=== PATIENT | female | born 1955 | race Caucasian/White ===

== ENCOUNTER 2019-03-09 17:15 | Emergency (ER) | payer MEDICARE, BC ==
[~2019-03-09] VITALS: Ht 152.4 cm; Wt 66.0 kg
--- NOTE | 2019-03-09 17:44 | ED General ---
General Chief Complaint: Cough/Cold/Flu Symptoms Stated Complaint: COUGH,FEVER,FALL-HIT HEAD History of Present Illness Date Seen by Provider: Mar 09, 2019 Time Seen by Provider: 17:39 Initial Comments Patient is a 63-year-old female with past medical history significant for fibromyalgia who comes to the ER today complaining of flu like symptoms. Her has been ill in the house as well. She has had symptoms that started yesterday and worsened today. She complains of some upper airway congestion, p ersistent nonproductive cough, general myalgias, and malaise. Patient states she did fall on her bathtub last night striking the right side of her head on the water spigot. She did not lose consciousness. No blurred vision, nausea or vomiting today or since the accident. She does not complain of cervical neck tenderness. Allergies and Home Medications Allergies Coded Allergies: Penicillins (Verified Allergy, Unknown, 03/09/19) escitalopram (Verified Allergy, Unknown, 03/09/19) morphine (Verified Allergy, Unknown, 03/09/19) Home Medications Benzonatate 100 Mg Capsule, 200 MG PO TID PRN for cough Prescribed by: KLARISSA DAWSON on 03/09/191837 Prednisone 50 Mg Tab, 50 MG PO DAILY Prescribed by: KLARISSA DAWSON on 03/09/191837 Patient Home Medication List Home Medication List Reviewed: Yes Review of Systems Review of Systems Constitutional: see HPI EENTM: see HPI Respiratory: no symptoms reported Gastrointestinal: no symptoms reported Musculoskeletal: muscle pain Skin: no symptoms reported Psychiatric/Neurological: No Symptoms Reported All Other Systems Reviewed Negative Unless Noted: Yes Past Yuzbqte-Tiwfum-Meghvn Hx Patient Social History Recent Foreign Travel: No Contact w/Someone Who Travel: No Physical Exam Vital Signs Vital Signs - First Documented 03/09/19 17:20 Temp 36.9 Pulse 78 Resp 18 B/P (MAP) 137/68 (91) Pulse Ox 97 O2 Delivery Room Air Capillary Refill : Height, Weight, BMI Height: '" Weight: lbs. oz. kg; BMI Method: General Appearance: No Apparent Distress, WD/WN HEENT: PERRL/EOMI, TMs Normal, Normal ENT Inspection, Pharynx Normal Neck: Full Range of Motion, Normal Inspection, Non Tender, Supple Respiratory: Chest Non Tender, Lungs Clear, Normal Breath Sounds, Other (wheezy cough during the interview but lungs are otherwise clear with good air mvt bilaterally) Cardiovascular: Regular Rate, Rhythm, No Edema Extremity: Normal Capillary Refill Neurologic/Psychiatric: Alert, Oriented x3 Skin: Normal Color, Warm/Dry Progress/Results/Core Measures Suspected Sepsis SIRS Temperature: Pulse: Respiratory Rate: Blood Pressure / Mean: Results/Orders Micro Results Microbiology 03/09/19 Influenza Types A,B Antigen (HUGO) - Final, Complete My Orders Orders - KLARISSA DAWSON DO Influenza A And B Antigens (03/09/19 17:22) Ct Head/Cervical Spine Wo (03/09/19 17:23) Prednisone Tablet (Deltasone Tablet) (03/09/19 18:45) Benzonatate Capsule (Tessalon Perles) (03/09/19 18:45) Vital Signs/I&O 03/09/19 03/09/19 17:20 17:20 Temp 36.9 Pulse 78 Resp 18 B/P (MAP) 137/68 (91) Pulse Ox 97 O2 Delivery Room Air Room Air Capillary Refill : Progress Note : Time: 17:42 Progress Note Patient is evaluated immediately on arrival to her room. She is in no distress and is drinking by mouth fluids. Her physical exam is largely unremarkable including her HEENT exam other than some ecchymosis is present behind the right ear near the mastoid process where the patient states she struck her head last evening. She is noted to have a cough during the interview that sounds very wheezy but no adventitious lung sounds are present and she has good air movement in all salmon. She sustained a fall last night in her bathtub. She does complain of dull pain in the right hip. This joint is passively ranged and the patient has no pain. Direct compression on the hip joint does not produce pain. No indication for imaging. Tonight, will do a flu swab and CT scan of the head given that she has a traumatic injury. At baseline, this patient takes 3 hy drocodone daily for control of her chronic fibromyalgia pain. 18:44: All results are reviewed and discussed with the patient. CT scan does not reveal any acute findings. Influenza screen is negative. I diagnosed the patient with viral syndrome. I gave her some prednisone hopefully to help with her wheezy cough as well as some Tessalon Perles. Recommended that she follow up with her primary care doctor. Return to the ER for any new or worsening symptoms. Departure Impression Primary Impression: Viral syndrome Disposition: HOME, SELF-CARE Condition: Improved Departure-Patient Inst. Referrals: ABIMAEL LUA MD (PCP/Family) Primary Care Physician Scripts Benzonatate (TESSALON PERLES) 100 Mg Capsule 200 MG PO TID PRN for cough, #21 CAP Prov: KLARISSA DAWSON DO 03/09/19 Prednisone (Prednisone) 50 Mg Tab 50 MG PO DAILY for 4 Days, #4 TAB Prov: KLARISSA DAWSON DO 03/09/19 KLARISSA DAWSON DO Mar 09, 2019 17:44
--- NOTE | 2019-03-09 18:24 | Diagnostic Imaging Report ---
PROCEDURE: CT head and CT cervical spine without contrast. TECHNIQUE: Multiple contiguous axial images were obtained through the brain and cervical spine without the use of intravenous contrast. Sagittal and coronal reformations through the cervical spine were then performed. Auto Exposure Controls were utilized during the CT exam to meet ALARA standards for radiation dose reduction. INDICATION: Fall, head and neck injury, bruising on the right side of the neck at the base of the skull. COMPARISON: None. FINDINGS: CT HEAD: Ventricles and cortical sulci appear age appropriate. There is no midline shift or mass effect. No acute intracranial hemorrhage is seen. There is no CT evidence of acute territorial ischemia. The calvarium appears intact. CT CERVICAL SPINE: There are mild degenerative changes at C5-C6. There is mild multilevel facet arthropathy. No acute fracture is seen. The soft tissues about the cervical spine demonstrate edema at the right posterior neck. No bony fragments or hyperdense fluid collections are seen in the spinal canal. IMPRESSION: 1. No acute intracranial hemorrhage or calvarium fracture. 2. No acute fracture is seen in the cervical spine. 3. Superficial soft tissue edema in the right posterior upper neck. Dictated by: Dictated on workstation # [id number]
[2019-03-09] MEDS ORDERED: BENZ100C18 PO (18:38)
[2019-03-09] MEDS ORDERED: PRD50T PO (18:38)
[2019-03-09] MEDS ORDERED: predniSONE 20 MG TAB PO ONE (18:45)
[2019-03-09] MEDS ORDERED: BENZONATATE 100 MG (TESSALON) CAPSULE PO SCH (18:45)
[2019-03-09 18:50] VITALS: BP 137/68
== END 2019-03-09 18:50 | disposition home or self-care (01) ==
LOC: ER FS 17:19
DX: B34.9 Viral infection, unspecified (principal); M79.7 Fibromyalgia; Z88.0 Allergy status to penicillin; Z88.5 Allergy status to narcotic agent; Z88.8 Allergy status to other drugs, medicaments and biological substances
CPT/HCPCS: 70450; 72125; 87804

== ENCOUNTER 2020-03-19 16:26 | Emergency (ER) | payer MEDICARE, BC ==
[~2020-03-19] VITALS: Ht 160 cm; Wt 62.0 kg
[~2020-03-19 16:26] MED LIST: BENZ100C18 PO; PRD50T PO
--- NOTE | 2020-03-19 16:41 | ED General ---
General Chief Complaint: General Problems/Pain Stated Complaint: PNEUMONIA,THROAT PAIN Source of Information: Patient Exam Limitations: No Limitations History of Present Illness Date Seen by Provider: Mar 19, 2020 Time Seen by Provider: 16:41 Initial Comments 64-year-old female comes in for recheck of pneumonia, sore throat. Patient r eports that on she was diagnosed with a right ear infection and pneumonia started on azithromycin. Patient comes in today because she feels like she is not any better. Patient complains of just some body aches and that in the morning when she gets up she has a fever. Patient called her primary care provider who told her to come to the ER. Upon arrival to the ER patient's agitated, oxygen saturations are 100%. There is no acute signs of distress. She is afebrile. She took her last azithromycin today. Allergies and Home Medications Allergies Coded Allergies: Penicillins (Verified Allergy, Unknown, 03/09/19) escitalopram (Verified Allergy, Unknown, 03/09/19) morphine (Verified Allergy, Unknown, 03/09/19) Home Medications Benzonatate 100 Mg Capsule, 200 MG PO TID PRN for cough Prescribed by: KLARISSA DAWSON on 03/09/191837 Prednisone 50 Mg Tab, 50 MG PO DAILY Prescribed by: KLARISSA DAWSON on 03/09/191837 Patient Home Medication List Home Medication List Reviewed: Yes Review of Systems Review of Systems Constitutional: see HPI, malaise EENTM: see HPI Respiratory: cough Cardiovascular: No chest pain, No palpitations Gastrointestinal: No diarrhea, No nausea, No vomiting Musculoskeletal: no symptoms reported Skin: no symptoms reported Psychiatric/Neurological: No Symptoms Reported Hematologic/Lymphatic: No Symptoms Reported Immunological/Allergic: no symptoms reported Past Bsqobqb-Qslmwp-Szxzas Hx Past Med/Social Hx: Reviewed Nursing Past Med/Soc Hx Patient Social History 2nd Hand Smoke Exposure: No Recent Foreign Travel: No Contact w/Someone Who Travel: No Recent Hopitalizations: No Seasonal Allergies Seasonal Allergies: Yes Past Medical History Adenoidectomy, Breast, Eye Surgery, Hysterectomy, Tonsillectomy Respiratory: No Cardiac: No Neurological: Yes Headaches /Migraines 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 oz. 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 Norm as Tested Skin: Normal Color, Warm/Dry Progress/Results/Core Measures Suspected Sepsis SIRS Temperature: Pulse: Respiratory Rate: Laboratory Tests 03/19/20 16:50: White Blood Count 6.7 Blood Pressure / Mean: Laboratory Tests 03/19/20 16:50: Creatinine 1.12, Platelet Count 456H, Total Bilirubin 0.2 Results/Orders Lab Results Laboratory Tests Test 03/19/20 16:50 03/19/20 17:10 Range/Units White Blood Count 6.7 4.3-11.0 10^3/uL Red Blood Count 3.92 L 4.35-5.85 10^6/uL Hemoglobin 12.3 11.5-16.0 G/DL Hematocrit 38 35-52 % Mean Corpuscular Volume 96 80-99 FL Mean Corpuscular Hemoglobin 31 25-34 PG Mean Corpuscular Hemoglobin Concent 33 32-36 G/DL Red Cell Distribution Width 13.8 10.0-14.5 % Platelet Count 456 H 130-400 10^3/uL Mean Platelet Volume 8.9 7.4-10.4 FL Immature Granulocyte % (Auto) 0 % Neutrophils (%) (Auto) 51 42-75 % Lymphocytes (%) (Auto) 39 12-44 % Monocytes (%) (Auto) 5 0-12 % Eosinophils (%) (Auto) 3 0-10 % Basophils (%) (Auto) 1 0-10 % Neutrophils # (Auto) 3.4 1.8-7.8 X 10^3 Lymphocytes # (Auto) 2.6 1.0-4.0 X 10^3 Monocytes # (Auto) 0.3 0.0-1.0 X 10^3 Eosinophils # (Auto) 0.2 0.0-0.3 10^3/uL Basophils # (Auto) 0.1 0.0-0.1 10^3/uL Immature Granulocyte # (Auto) 0.0 0.0-0.1 10^3/uL Sodium Level 144 135-145 MMOL/L Potassium Level 4.1 3.6-5.0 MMOL/L Chloride Level 113 H 98-107 MMOL/L Carbon Dioxide Level 21 21-32 MMOL/L Anion Gap 10 5-14 MMOL/L Blood Urea Nitrogen 15 7-18 MG/DL Creatinine 1.12 0.60-1.30 MG/DL Estimat Glomerular Filtration Rate 49 BUN/Creatinine Ratio 13 Glucose Level 97 70-105 MG/DL Calcium Level 9.5 8.5-10.1 MG/DL Corrected Calcium 9.3 8.5-10.1 MG/DL Total Bilirubin 0.2 0.1-1.0 MG/DL Aspartate Amino Transf (AST/SGOT) 15 5-34 U/L Alanine Aminotransferase (ALT/SGPT) 11 0-55 U/L Alkaline Phosphatase 139 H 40-136 U/L C-Reactive Protein 0.65 H <0.50 MG/DL Total Protein 7.0 6.4-8.2 GM/DL Albumin 4.3 3.2-4.5 GM/DL Urine Color YELLOW Urine Clarity CLEAR Urine pH 6.5 5-9 Urine Specific [place] 1.025 H 1.016-1.022 Urine Protein NEGATIVE NEGATIVE Urine Glucose (UA) NEGATIVE NEGATIVE Urine Ketones NEGATIVE NEGATIVE Urine Nitrite NEGATIVE NEGATIVE Urine Bilirubin NEGATIVE NEGATIVE Urine Urobilinogen 1.0 < = 1.0 MG/DL Urine Leukocyte Esterase TRACE H NEGATIVE Urine RBC (Auto) NEGATIVE NEGATIVE Urine RBC NONE /HPF Urine WBC 5-10 H /HPF Urine Squamous Epithelial Cells 0-2 /HPF Urine Crystals NONE /LPF Urine Bacteria TRACE /HPF Urine Casts NONE /LPF Urine Mucus SMALL H /LPF Urine Culture Indicated YES My Orders Orders - RADHA RODRIGUEZ L DO Cbc With Automated Diff (03/19/20 16:42) Comprehensive Metabolic Panel (03/19/20 16:42) Ua Culture If Indicated (03/19/20 16:42) Influenza A And B Antigens (03/19/20 16:42) Crp Fs (03/19/20 16:42) Chest Pa/Lat (2 View) (03/19/20 16:42) Urine Culture (03/19/20 17:10) Vital Signs/I&O 03/19/20 16:59 Temp 36.5 Pulse 86 Resp 18 B/P (MAP) 135/77 (96) Pulse Ox 99 O2 Delivery Room Air Capillary Refill : Progress Note : Time: 17:33 Progress Note Patient with normal chest x-ray no pneumonia. Patient with labs that are unremarkable except for a questionable urinary tract infection. Based on her still complaining of symptoms and body aches I will start her on Macrobid. Patient stable and will be discharged home Diagnostic Imaging Diagonstic Imaging: Xray Plain Films/CT/US/NM/MRI: chest Comments [facility], [place] NAME: BRIDGET CHEN [facility] REC#: [id number] PT STATUS: REG ER : 1955 PHYSICIAN: RADHA RODRIGUEZ DO ADMIT DATE: 03/19/20/ER FS Draft Date of Exam:03/19/20 CHEST PA/LAT (2 VIEW) EXAM: CHEST PA/LAT (2 VIEW) INDICATION: Cough. COMPARISON: None. FINDINGS: Normal heart size and central pulmonary vascularity. Mild linear atelectasis or scarring in the right upper lobe. No focal pulmonary consolidation. No pleural effusion or pneumothorax. No acute osseous findings. Demineralization. IMPRESSION: No acute cardiopulmonary findings. Dictated on workstation # [id number] Dict: 03/19/201707 Trans: 03/19/20 1711 [id number] [id number] Interpreted by: INGRID SHELDON MD Electronically signed by: Departure Impression Primary Impression: Post viral syndrome Additional Impression: Acute cystitis Qualified Codes: N30.00 - Acute cystitis without hematuria Disposition: 01 HOME, SELF-CARE Condition: Stable Departure-Patient Inst. Referrals: ABIMAEL LUA MD (PCP/Family) Primary Care Physician Patient Instructions: VIRAL SYNDROME Add. Discharge Instructions: Follow-up with your primary care provider in 3-4 days for continuation of care and recheck in today symptoms All discharge instructions reviewed with patient and/or family. Voiced understanding. Scripts Nitrofurantoin Macrocrystal (Nitrofurantoin) 100 Mg Capsule 100 MG PO BID, #14 CAP 0 Refills Prov: RADHA RODRIGUEZ DO 03/19/20 RADHA RODRIGUEZ DO Mar 19, 2020 16:41
--- NOTE | 2020-03-19 16:54 | NUR ---
PT COMPLAINED ABOUT BEING SENT HERE TO THE ER OVER THE PHONE FROM [facility] FROM THE START OF HER VISIT. SHE ALSO REPORTED SHE "HAD NO IDEA WE WERE NOT THE SAME URGENT CARE OR ELSE SHE WOULDNT HAVE CAME TO ANOTHER PLACE". SHE COMPLAINED ABOUT THE BLOOD DRAW AND SCREAMED DURING THE DRAW. SHE REPORTS SHE STILL HAS PNEUMONIA AND NEEDS A STRONGER ANTIBIOTIC BC THE STRONGEST ANTIBIOTIC UC COULD GIVE HER ON WAS ARITHROMYCIN AND SHE STATES THAT ITS NOT WORKING. SHE ALSO STATES HER TEMPERATURE IS ALWAYS 97.4 AND THAT ANYTHING OTHER THAN THAT IS A FEVER FOR HER AND THAT HER TEMPERATURE IS IN THE "RED ZONE" EVERY MORNING. SHE HAS HAD 3 MEGATIVE COVID TESTS RECENTLY. Addendum: 03/19/20 at 1717 by NEHAL JOSE *NEGATIVE SPELLING ERRORS CORRECTED
[2020-03-19 16:59] LABS: BASOPHILS % (AUTO) 1 % (0-10); EOSINOPHILS % (AUTO) 3 % (0-10); HEMATOCRIT 38 % (35-52); HEMOGLOBIN 12.3 G/DL (11.5-16.0); LYMPHOCYTES % (AUTO) 39 % (12-44); MEAN CORPUSCULAR HEMOGLOBIN 31 PG (25-34); MEAN CORPUSCULAR HGB CONC 33 G/DL (32-36); MEAN CORPUSCULAR VOLUME 96 FL (80-99); MEAN PLATELET VOLUME 8.9 FL (7.4-10.4); MONOCYTES % (AUTO) 5 % (0-12); NEUTROPHILS % (AUTO) 51 % (42-75); PLATELET COUNT 456 10^3/uL (130-400); WHITE BLOOD COUNT 6.7 10^3/uL (4.3-11.0)
[2020-03-19 17:00] LABS: BASOPHILS # (AUTO) 0.1 10^3/uL (0.0-0.1); EOSINOPHILS # (AUTO) 0.2 10^3/uL (0.0-0.3); LYMPHOCYTES # (AUTO) 2.6 X 10^3 (1.0-4.0); MONOCYTES # (AUTO) 0.3 X 10^3 (0.0-1.0); NEUTROPHILS # (AUTO) 3.4 X 10^3 (1.8-7.8)
--- NOTE | 2020-03-19 17:11 | Diagnostic Imaging Report ---
EXAM: CHEST PA/LAT (2 VIEW) INDICATION: Cough. COMPARISON: None. FINDINGS: Normal heart size and central pulmonary vascularity. Mild linear atelectasis or scarring in the right upper lobe. No focal pulmonary consolidation. No pleural effusion or pneumothorax. No acute osseous findings. Demineralization. IMPRESSION: No acute cardiopulmonary findings. Dictated by: Dictated on workstation # [id number]
[2020-03-19 17:19] LABS: ALBUMIN 4.3 GM/DL (3.2-4.5); BILIRUBIN,TOTAL 0.2 MG/DL (0.1-1.0); CALCIUM 9.5 MG/DL (8.5-10.1); CREATININE SERUM 1.12 MG/DL (0.60-1.30); POTASSIUM 4.1 MMOL/L (3.6-5.0)
[2020-03-19 17:31] LABS: BACTERIA,URINE TRACE /HPF; BILIRUBIN,URINE NEGATIVE (NEGATIVE); CLARITY,URINE CLEAR; COLOR,URINE YELLOW; GLUCOSE, URINE (UA) NEGATIVE (NEGATIVE); KETONES,URINE NEGATIVE (NEGATIVE); LEUKOCYTE ESTERASE ,URINE TRACE (NEGATIVE); NITRITE,URINE NEGATIVE (NEGATIVE); PH,URINE 6.5 (5-9); PROTEIN,URINE NEGATIVE (NEGATIVE)
[2020-03-19 17:32] LABS: SQUAMOUS EPITHELIAL CELL,UR 0-2 /HPF
[2020-03-19 17:36] VITALS: BP 124/62
[2020-03-19] MEDS ORDERED: NITR100C PO (17:36)
== END 2020-03-19 17:40 | disposition home or self-care (01) ==
LOC: EDUNIT# 16:26 → ER FS 16:32
DX: B34.9 Viral infection, unspecified (principal); N30.00 Acute cystitis without hematuria; F41.9 Anxiety disorder, unspecified; Z88.0 Allergy status to penicillin; Z88.5 Allergy status to narcotic agent; Z88.8 Allergy status to other drugs, medicaments and biological substances; Z79.52 Long term (current) use of systemic steroids
CPT/HCPCS: 36415; 71046; 80053; 81000; 85025; 86141; 87088; 87804

== ENCOUNTER 2020-06-10 07:53 | Outpatient (RCR) | payer MEDICARE, BC ==
[~2020-06-10] VITALS: Ht 152.4 cm; Wt 59.0 kg
[~2020-06-10 07:53] MED LIST changes: +NITR100C PO
[2020-06-10] MEDS ORDERED: ACHD5005 PO (14:27)
[2020-06-10] MEDS ORDERED: LINA290C PO (14:27)
[2020-06-10] MEDS ORDERED: PANT40TA52 PO (14:27)
[2020-06-10] MEDS ORDERED: NITR-68 PO (14:27)
[2020-06-10] MEDS ORDERED: GBPN600T PO (14:27)
[2020-06-10] MEDS ORDERED: PROM25PO PO (14:27)
[2020-06-10] MEDS ORDERED: ATOR40TA70 PO (14:27)
[2020-06-10] MEDS ORDERED: CLON0.5T4 PO (14:27)
[2020-06-10] MEDS ORDERED: MONT10TA32 PO (14:27)
[2020-06-10] MEDS ORDERED: TRZ50T PO (14:27)
[2020-06-10] MEDS ORDERED: ZOLP10TA PO (14:27)
[2020-06-10] MEDS ORDERED: LEVO5TAB12 PO (14:27)
[2020-06-10] MEDS ORDERED: TOPI50TA13 PO (14:27)
== END 2020-06-10 14:36 | disposition home or self-care (01) ==
LOC: PREOP 07:53
PROVIDERS: ATTEND Surgery
DX: Z01.818 Encounter for other preprocedural examination (principal)

== ENCOUNTER 2020-06-17 10:55 | Day surgery (SDC) | payer MEDICARE, BC ==
[2020-06-17] VITALS (7 sets, daily range): BP systolic 113–136; BP diastolic 57–65
[~2020-06-17] VITALS: Ht 152.4 cm; Wt 59.0 kg
[~2020-06-17 10:55] MED LIST changes: +ACHD5005 PO; +ATOR40TA70 PO; +CLON0.5T4 PO; +GBPN600T PO; +LEVO5TAB12 PO; +LINA290C PO; +MONT10TA32 PO; +NITR-68 PO; +PANT40TA52 PO; +PROM25PO PO; +TOPI50TA13 PO; +TRZ50T PO; +ZOLP10TA PO
[2020-06-17] MEDS ORDERED: LACTATED RINGERS 1,000 ML IV ONE (11:12)
[2020-06-17] MEDS ORDERED: LACTATED RINGERS 1,000 ML IV STA (11:18)
[2020-06-17] MEDS ORDERED: HURRICAINE EXT TUBE (BENZOCAINE) XX PRN (11:30)
--- NOTE | 2020-06-17 12:17 | Progress Note-Pre Operative ---
Pre-Operative Progress Note H&P Reviewed The H&P was reviewed, patient examined and no changes noted. Time Seen by Provider: 12:16 Date H&P Reviewed: Jun 17, 2020 Time H&P Reviewed: 12:17 Pre-Operative Diagnosis: Abd pain, Gastritis, hx of polyps, melena FELISA GARCIA DO Jun 17, 2020 12:17
[2020-06-17] MEDS ORDERED: MIDAZOLAM 2 MG/2 ML (VERSED) VIAL ONE ×2 (12:30→12:38)
[2020-06-17] MEDS ORDERED: PROPOFOL INJECTION 50 ML IV ONE (12:30)
--- NOTE | 2020-06-17 13:17 | Progress Note-Post Operative ---
Post-Operative Progess Note Surgeon (s)/Life Coach (s) Surgeon FELISA GARCIA DO Life Coach: none Pre-Operative Diagnosis Abd pain, Gastritis, hx of polyps, melena Post-Operative Diagnosis Gastritis Hiatal Hernia Transverse colon polyp diverticula int hemorrhoids Procedure & Operative Findings Date of Procedure 06/17/20 Procedure Performed/Findings EGD with bx Colon with snare Anesthesia Type IV sedation by PONY WORKER Estimated Blood Loss Estimated blood loss (mL): scant Specimens/Packing Specimens Removed antral bx Body of stomach bx GE jxn bx x 2 transverse colon polyp FELISA GARCIA DO Jun 17, 2020 13:17
--- NOTE | 2020-06-17 13:18 | Endoscopy Discharge Instruct ---
Endo Procedure/Findings Findings 1.: Gastritis 2.: Hiatal Hernia 3.: Polyp 4.: Diverticulosis, Internal Hemorrhoids Discharge Instructions - Activity: You might feel a little sleepy until tomorrow. This is due to the medicine you received to relax you. Until tomorrow, you should: NOT drive a car, operate machinery or power tools. NOT drink any alcoholic beverages. NOT make any important decisions or sign importortant papers. Do not return to work until tomorrow, unless otherwise instructed. Resume previous activities tomorrow. Diet: Start by taking liquids. If you tolerate liquids, advance to solid food. 1.: EGD in 3 years 2.: Colonscopy in 5 years Notify Physician - If you experience excessive bleeding, unusual abdominal pain, fever, or chest pain, contact your doctor immediately. FELISA GARCIA DO Jun 17, 2020 13:18
--- NOTE | 2020-06-17 13:25 | Anesthesia-General Post-Op ---
MAC Patient Condition Mental Status/LOC: Same as Preop Cardiovascular: Satisfactory Nausea/Vomiting: Absent Respiratory: Satisfactory Pain: Controlled Complications: Absent Post Op Complications Complications None Follow Up Care/Instructions Patient Instructions None needed. Anesthesiology Discharge Order Discharge Order Patient is doing well, no complaints, stable vital signs, no apparent adverse anesthesia problems. No complications reported per nursing. HEATH BROWNE CRNA Jun 17, 2020 13:25
--- NOTE | 2020-06-18 21:24 | OPERATIVE REPORT ---
DATE OF SERVICE: 06/17/2020 PREOPERATIVE DIAGNOSES: Gastritis, history of polyps and melena. POSTOPERATIVE DIAGNOSES: Gastritis, hiatal hernia, colon polyps, diverticula, internal hemorrhoids. PROCEDURES: 1. EGD with biopsy. 2. Colonoscopy with snare polypectomy. SURGEON: Brian Avila DO PHTHALIC ACID PURIFIER: None. ANESTHESIA: IV sedation by the WASHERY BOSS. SPECIMEN: Biopsy of the antrum, biopsy of the GE junction x2, biopsy of body of stomach and biopsy from the hiatal hernia as well as a transverse colon polyp. BLOOD LOSS: Scant. FLUIDS: Per anesthesia. POSTOPERATIVE CONDITION: Stable. INDICATION FOR PROCEDURE: The patient is a 65-year-old female who has been having some melena, abdominal pain and burning, gastritis and history of polyps, needed a workup. FINDINGS: The patient had gastritis and a large hiatal hernia. She also had a polyp in the colon, diverticula and internal hemorrhoids. PROCEDURE NOTE: After informed consent was obtained, the patient was brought to the endoscopy suite, placed in bed in left lateral decubitus position. She was administered IV sedation by the WASHERY BOSS who then monitored her vitals the entire time, heart rate, blood pressure and pulse ox and the scope was inserted, started with the EGD, placing scope down the mouth through the esophagus into the stomach, noted some inflammation at the antrum, pushing the duodenum. Duodenum looked okay, took a picture. Pulled back, did a biopsy of the antrum and then pulled into the GE junction, did two biopsies. Pushed back into the stomach, did a biopsy of the body of stomach and then did another biopsy of the hiatal hernia, suctioned all the air out of stomach and then pulled the scope up the esophagus and out the mouth, did not see any problems in the esophagus. Switched camera, switched gloves, went down below, started the colonoscopy, pushed in, on the way in, noted some diverticula, took a picture of this and then in the transverse colon, saw a polyp, did snare polypectomy, continued to cecum, took a picture of appendiceal orifice, noted the ileocecal valve and then slowly withdrew the scope insufflating to look circumferentially at the guy looking the cecum, up the ascending colon to the hepatic flexure, then down the transverse colon, splenic flexure, into the descending colon down in the sigmoid and finally into the rectum, retroflexed in the rectal vault, saw some minimal internal hemorrhoids, and took a picture of this. The patient tolerated the procedure, recovered in the endoscopy suite. Job ID: [id number] DocumentID: [id number] Dictated Date: 06/18/2020 17:22:08 [place] Attorney Date: 06/18/2020 21:23:04 Dictated By: BRIAN AVILA DO
== END 2020-06-17 14:15 | disposition home or self-care (01) ==
LOC: ENDO 10:55
PROVIDERS: ATTEND Surgery
DX: D12.3 Benign neoplasm of transverse colon (principal); K57.30 Diverticulosis of large intestine without perforation or abscess without bleeding; K64.8 Other hemorrhoids; K92.1 Melena; K29.70 Gastritis, unspecified, without bleeding; K44.9 Diaphragmatic hernia without obstruction or gangrene; K20.90 Esophagitis, unspecified without bleeding; K29.50 Unspecified chronic gastritis without bleeding; I10 Essential (primary) hypertension; J45.909 Unspecified asthma, uncomplicated; F41.9 Anxiety disorder, unspecified; F32.9 Major depressive disorder, single episode, unspecified; Z79.899 Other long term (current) drug therapy; Z88.0 Allergy status to penicillin; Z88.5 Allergy status to narcotic agent; Z88.8 Allergy status to other drugs, medicaments and biological substances; Z86.010 Personal history of colon polyps; Z90.710 Acquired absence of both cervix and uterus; Z80.9 Family history of malignant neoplasm, unspecified
CPT/HCPCS: 88305

== ENCOUNTER 2020-10-10 15:23 | Emergency (ER) | payer MEDICARE, BC ==
[~2020-10-10] VITALS: Ht 152 cm; Wt 60.0 kg
[2020-10-10] MEDS ORDERED: NS IV 1000 ML 1,000 ML IV SCH ×2 (15:45)
--- NOTE | 2020-10-10 16:03 | ED General ---
General Stated Complaint: BODY ACHES;NUMBNESS;SLOW RESPONSE;FEVER Source of Information: Patient History of Present Illness Date Seen by Provider: Oct 10, 2020 Time Seen by Provider: 15:40 Initial Comments Patient is a 65-year-old female who presents with multiple medical complaints. Patient reports generalized weakness, body aches and fever 102.1. She was evaluated at the urgent care and had influenza and Covid swabs which were reported to be negative. Fever and symptoms began 12 hours prior to ED arrival. Patient states she woke up with chills and sweats and measured temperature at home. She has had a dry nonproductive cough but denies shortness of breath or chest pain. She reports urinary frequency urgency and burning the past 3 days with decreased urinary output. She has chronic neck shoulder and back pain. She reports mild headache and took a hydrocodone prior to ED arrival. Patient reports extreme fatigue and exhaustion caring for her who has had a extended recovery at home from hemorrhoid surgery. She reports left arm numbness but denies weakness earlier today. Numbness is resolved. Denies change in vision, slurred speech, loss of balance, extremity weakness. History of fibromyalgia. No other acute symptoms or complaints. Timing/Duration: 12-24 Hours Severity: Moderate Modifying Factors: improves with Other Associated Systoms: Other Allergies and Home Medications Allergies Coded Allergies: Penicillins (Verified Allergy, Unknown, 03/09/19) escitalopram (Verified Allergy, Unknown, 03/09/19) morphine (Verified Allergy, Unknown, 03/09/19) Home Medications Atorvastatin Calcium 40 Mg Tablet, 40 MG PO DAILY, (Reported) Clonazepam 0.5 Mg Tablet, 0.5 MG PO DAILY, (Reported) Gabapentin 600 Mg Tablet, 600 MG PO QID, (Reported) Hydrocodone/Acetaminophen 1 Each Tablet, 1 TAB PO Q4H PRN for PAIN-MODERATE (5- 7), (Reported) Levocetirizine Dihydrochloride 5 Mg Tablet, 5 MG PO DAILY, (Reported) Linaclotide 290 Mcg Capsule, 290 MCG PO DAILY, (Reported) Montelukast Sodium 10 Mg Tablet, 10 MG PO DAILY, (Reported) Nitrofurantoin Macrocrystal 100 Mg Capsule, 100 MG PO DAILY, (Reported) Pantoprazole Sodium 40 Mg Tablet.dr, 40 MG PO DAILY, (Reported) Promethazine HCl 25 Gm Powder, 25 MG PO DAILY, (Reported) Topiramate 50 Mg Tablet, 50 MG PO DAILY, (Reported) Trazodone HCl 50 Mg Tablet, 50 MG PO DAILY, (Reported) Zolpidem Tartrate 10 Mg Tablet, 10 MG PO HS, (Reported) Patient Home Medication List Home Medication List Reviewed: Yes Review of Systems Review of Systems Constitutional: see HPI EENTM: see HPI Respiratory: see HPI Cardiovascular: see HPI Gastrointestinal: see HPI Genitourinary: see HPI Musculoskeletal: see HPI Skin: see HPI Psychiatric/Neurological: See HPI Hematologic/Lymphatic: See HPI Immunological/Allergic: see HPI All Other Systems Reviewed Negative Unless Noted: Yes Past Xjkjfqh-Stotvh-Ndeila Hx Immunizations Up To Date PED Vaccines UTD: No Seasonal Allergies Seasonal Allergies: Yes Past Medical History Breast, Hysterectomy Respiratory: Yes Asthma Cardiac: Yes Hypertension Neurological: No Headaches /Migraines [employer] History: Hysterectomy Genitourinary: No Gastrointestinal: Yes Chronic Constipation Musculoskeletal: Yes Fibromyalgia Endocrine: No HEENT: No Cataract Loss of Vision: Denies Hearing Impairment: Denies Cancer: No Psychosocial: Yes Anxiety, Depression Integumentary: No Blood Disorders: No Physical Exam Vital Signs Vital Signs - First Documented 10/10/20 15:23 Temp 36.7 Pulse 75 Resp 18 B/P (MAP) 90/53 (65) Pulse Ox 96 O2 Delivery Room Air Capillary Refill : Height, Weight, BMI Height: '" Weight: lbs. oz. kg; 25.40 BMI Method: General Appearance: No Apparent Distress, WD/WN, Anxious, Other (Generally weak and fatigued appearing) Eyes: Bilateral Eye Normal Inspection, Bilateral Eye PERRL, Bilateral Eye EOMI HEENT: PERRL/EOMI, Pharynx Normal, Moist Mucous Membranes Neck: Full Range of Motion, Non Tender, Supple Respiratory: Chest Non Tender, Lungs Clear, Normal Breath Sounds, No Accessory Muscle Use, No Respiratory Distress Cardiovascular: Regular Rate, Rhythm, No Edema Gastrointestinal: Non Tender, Soft Back: Normal Inspection Extremity: Non Tender, No Calf Tenderness Neurologic/Psychiatric: Alert, Oriented x3, No Motor/Sensory Deficits Focused Exam Sepsis Stage: Ruled Out Lactate Level 10/10/20 16:05: Lactic Acid Level 1.23 Lactic Acid Level Laboratory Tests Test 10/10/20 16:05 Lactic Acid Level 1.23 MMOL/L (0.50-2.00) Progress/Results/Core Measures Suspected Sepsis SIRS Temperature: Pulse: Respiratory Rate: Laboratory Tests 10/10/20 16:05: White Blood Count 15.8H Blood Pressure / Mean: 10/10/20 16:05: Lactic Acid Level 1.23 Laboratory Tests 10/10/20 16:05: Creatinine 1.09, Platelet Count 254, Total Bilirubin 0.4 Results/Orders Lab Results Laboratory Tests Test 10/10/20 15:26 10/10/20 16:05 Range/Units Urine Color YELLOW Urine Clarity CLOUDY H Urine pH 5.5 5-9 Urine Specific [place] 1.025 H 1.016-1.022 Urine Protein NEGATIVE NEGATIVE Urine Glucose (UA) NEGATIVE NEGATIVE Urine Ketones NEGATIVE NEGATIVE Urine Nitrite NEGATIVE NEGATIVE Urine Bilirubin NEGATIVE NEGATIVE Urine Urobilinogen 0.2 < = 1.0 MG/DL Urine Leukocyte Esterase NEGATIVE NEGATIVE Urine RBC (Auto) NEGATIVE NEGATIVE Urine RBC 0-2 /HPF Urine WBC 5-10 H /HPF Urine Squamous Epithelial Cells >50 H /HPF Urine Crystals NONE /LPF Urine Bacteria TRACE /HPF Urine Casts PRESENT /LPF Urine Hyaline Casts 10-25 H /LPF Urine Mucus LARGE H /LPF Urine Culture Indicated NO Urine Opiates Screen POSITIVE H NEGATIVE Urine Oxycodone Screen NEGATIVE NEGATIVE Urine Methadone Screen NEGATIVE NEGATIVE Urine Propoxyphene Screen NEGATIVE NEGATIVE Urine Barbiturates Screen NEGATIVE NEGATIVE Ur Tricyclic Antidepressants Screen NEGATIVE NEGATIVE Urine Phencyclidine Screen NEGATIVE NEGATIVE Urine Amphetamines Screen NEGATIVE NEGATIVE Urine Methamphetamines Screen NEGATIVE NEGATIVE Urine Benzodiazepines Screen POSITIVE H NEGATIVE Urine Cocaine Screen NEGATIVE NEGATIVE Urine Cannabinoids Screen NEGATIVE NEGATIVE White Blood Count 15.8 H 4.3-11.0 10^3/uL Red Blood Count 3.54 L 4.35-5.85 10^6/uL Hemoglobin 11.7 11.5-16.0 G/DL Hematocrit 35 35-52 % Mean Corpuscular Volume 98 80-99 FL Mean Corpuscular Hemoglobin 33 25-34 PG Mean Corpuscular Hemoglobin Concent 34 32-36 G/DL Red Cell Distribution Width 12.7 10.0-14.5 % Platelet Count 254 130-400 10^3/uL Mean Platelet Volume 10.2 7.4-10.4 FL Immature Granulocyte % (Auto) 1 % Neutrophils (%) (Auto) 88 H 42-75 % Lymphocytes (%) (Auto) 8 L 12-44 % Monocytes (%) (Auto) 3 0-12 % Eosinophils (%) (Auto) 0 0-10 % Basophils (%) (Auto) 0 0-10 % Neutrophils # (Auto) 13.9 H 1.8-7.8 X 10^3 Lymphocytes # (Auto) 1.2 1.0-4.0 X 10^3 Monocytes # (Auto) 0.5 0.0-1.0 X 10^3 Eosinophils # (Auto) 0.0 0.0-0.3 10^3/uL Basophils # (Auto) 0.0 0.0-0.1 10^3/uL Immature Granulocyte # (Auto) 0.1 0.0-0.1 10^3/uL Neutrophils % (Manual) 74 % Lymphocytes % (Manual) 6 % Monocytes % (Manual) 5 % Band Neutrophils 15 % Blood Morphology Comment NORMAL Sodium Level 141 135-145 MMOL/L Potassium Level 4.1 3.6-5.0 MMOL/L Chloride Level 112 H 98-107 MMOL/L Carbon Dioxide Level 17 L 21-32 MMOL/L Anion Gap 12 5-14 MMOL/L Blood Urea Nitrogen 13 7-18 MG/DL Creatinine 1.09 0.60-1.30 MG/DL Estimat Glomerular Filtration Rate 50 BUN/Creatinine Ratio 12 Glucose Level 90 70-105 MG/DL Lactic Acid Level 1.23 0.50-2.00 MMOL/L Calcium Level 7.4 L 8.5-10.1 MG/DL Corrected Calcium 8.0 L 8.5-10.1 MG/DL Magnesium Level 1.6 1.6-2.4 MG/DL Total Bilirubin 0.4 0.1-1.0 MG/DL Aspartate Amino Transf (AST/SGOT) 24 5-34 U/L Alanine Aminotransferase (ALT/SGPT) 9 0-55 U/L Alkaline Phosphatase 112 40-136 U/L C-Reactive Protein 6.54 H <0.50 MG/DL Total Protein 5.7 L 6.4-8.2 GM/DL Albumin 3.3 3.2-4.5 GM/DL My Orders Orders - URBANO FORBES DO Urinalysis (10/10/20 15:37) Cbc With Automated Diff (10/10/20 15:37) Comprehensive Metabolic Panel (10/10/20 15:37) Ns Iv 1000 Ml (Sodium Chloride 0.9%) (10/10/20 15:45) Crp Fs (10/10/20 15:38) Lactic Acid Analyzer (10/10/20 15:38) Blood Culture (10/10/20 15:38) Drug Screen Stat (Urine) (10/10/20 15:39) Magnesium (10/10/20 15:39) Ns Iv 1000 Ml (Sodium Chloride 0.9%) (10/10/20 15:45) Chest 1 View Ap/Pa Only (10/10/20 15:39) Ct Head Wo (10/10/20 15:39) Blood Culture (10/10/20 16:05) Manual Differential (10/10/20 16:05) Ceftriaxone (Rocephin) (10/10/20 16:45) Medications Given in ED Current Medications Medications Dose Ordered Sig/Alli Route Start Time Stop Time Status Last Admin Dose Admin Ceftriaxone Sodium 1000 mg/ Sterile Water 10 ml @ 200 mls/hr ONCE ONCE IV 10/10/20 16:45 10/10/20 16:47 DC 10/10/20 16:56 200 MLS/HR Vital Signs/I&O 10/10/20 15:23 Temp 36.7 Pulse 75 Resp 18 B/P (MAP) 90/53 (65) Pulse Ox 96 O2 Delivery Room Air Capillary Refill : Departure Communication (Admissions) Patient fatigued with mild hypotension and slurring of speech. Suspect combination of dehydration, urinary tract infection and drug effect. CT head nonacute. IV fluids given. Labs reviewed. Antibiotics given. Recommend supportive care with PCP follow-up and continued therapeutic care. Symptoms improved. Return precautions reviewed. Patient verbalizes understanding agreement discharge instructions prior to departure Impression Primary Impression: Urinary tract infection Additional Impressions: Hypotension Generalized weakness Disposition: 01 HOME, SELF-CARE Condition: Stable Departure-Patient Inst. Decision time for Depature: 17:25 Referrals: ABIMAEL LUA MD (PCP/Family) Primary Care Physician Patient Instructions: Weakness ED, Urinary Tract Infections in Adults, Generalized Weakness (DC) Add. Discharge Instructions: Please increase fluids and follow-up and take newly prescribed medication as directed. Do not take hydrocodone or Ambien until after follow-up with your PCP. Follow-up with your PCP in 3 to 5 days for reevaluation. Return to the ED if new or worsening symptoms Scripts Doxycycline Hyclate (Doxycycline Hyclate) 100 Mg Tablet 100 MG PO BID, #14 TAB 0 Refills Prov: URBANO FORBES DO 10/10/20 Doxycycline Hyclate (Doxycycline Hyclate) 100 Mg Tablet 100 MG PO BID, #20 TAB Prov: URBANO FORBES DO 10/10/20 URBANO FORBES DO Oct 10, 2020 16:03
--- NOTE | 2020-10-10 16:29 | Diagnostic Imaging Report ---
INDICATION: Malaise and weakness COMPARISON with radiographs 03/19/2020 FINDINGS: Some rightward convexity thoracolumbar scoliotic curvature, chronic. Cardiomediastinal and hilar contours unremarkable. Densities owing to bilateral breast implants project over the lung bases, chronic. No focal consolidation, effusion, pneumothorax or failure pattern. No free air beneath the diaphragms. The lung markings more conspicuous today but this is believed to be on a technical basis. Some linear scarring in the right mid lung laterally, chronic. IMPRESSION: Stable chronic findings. No acute appearing abnormality. Dictated by: Dictated on workstation # [id number]
--- NOTE | 2020-10-10 16:30 | Diagnostic Imaging Report ---
PROCEDURE: CT head without contrast. TECHNIQUE: Multiple contiguous axial images were obtained through the brain without the use of intravenous contrast. Auto Exposure Controls were utilized during the CT exam to meet ALARA standards for radiation dose reduction. INDICATION: Altered mental status. Head pain and weakness. COMPARISON: Head CT compared to 03/09/2019. FINDINGS: There is no intracranial hemorrhage, hydrocephalus, edema, mass, mass effect, nor evidence for an elevation of the intracerebral pressures. The basilar cisterns are patent. There is no sulcal effacement. There was no mass or mass effect. The orbits, sinuses, and calvarium all appeared stable and unremarkable with small right maxillary sinus mucous retention cyst noted incidentally. IMPRESSION: Stable CT head showed no hemorrhage, edema, or acute-appearing abnormalities. Unchanged from prior. Dictated by: Dictated on workstation # [id number]
[2020-10-10 16:38] LABS: BASOPHILS % (AUTO) 0 % (0-10); EOSINOPHILS % (AUTO) 0 % (0-10); HEMATOCRIT 35 % (35-52); HEMOGLOBIN 11.7 G/DL (11.5-16.0); LYMPHOCYTES # (AUTO) 1.2 X 10^3 (1.0-4.0); LYMPHOCYTES % (AUTO) 8 % (12-44); MEAN CORPUSCULAR HEMOGLOBIN 33 PG (25-34); MEAN CORPUSCULAR HGB CONC 34 G/DL (32-36); MEAN CORPUSCULAR VOLUME 98 FL (80-99); MEAN PLATELET VOLUME 10.2 FL (7.4-10.4); MONOCYTES # (AUTO) 0.5 X 10^3 (0.0-1.0); MONOCYTES % (AUTO) 3 % (0-12); NEUTROPHILS # (AUTO) 13.9 X 10^3 (1.8-7.8); NEUTROPHILS % (AUTO) 88 % (42-75); PLATELET COUNT 254 10^3/uL (130-400); WHITE BLOOD COUNT 15.8 10^3/uL (4.3-11.0)
[2020-10-10 16:39] LABS: BAND NEUTROPHILS 15 %; LYMPHOCYTES % (MANUAL) 6 %; MONOCYTES % (MANUAL) 5 %; NEUTROPHILS % (MANUAL) 74 %; RBC MORPH NORMAL
[2020-10-10 16:40] LABS: AMPHETAMINE SCREEN, URINE NEGATIVE (NEGATIVE); BARBITURATE SCREEN URINE NEGATIVE (NEGATIVE); BENZODIAZEPINES SCREEN URINE POSITIVE (NEGATIVE); BILIRUBIN,URINE NEGATIVE (NEGATIVE); CANNABINOID SCREEN, URINE NEGATIVE (NEGATIVE); CLARITY,URINE CLOUDY; COCAINE SCREEN URINE NEGATIVE (NEGATIVE); COLOR,URINE YELLOW; GLUCOSE, URINE (UA) NEGATIVE (NEGATIVE); KETONES,URINE NEGATIVE (NEGATIVE); METHADONE STAT NEGATIVE (NEGATIVE); METHAMPHETAMINE SCREEN URINE S NEGATIVE (NEGATIVE); NITRITE,URINE NEGATIVE (NEGATIVE); OPIATE SCREEN URINE POSITIVE (NEGATIVE); OXYCODONE STAT NEGATIVE (NEGATIVE); PH,URINE 5.5 (5-9); PROPOXYPHENE STAT NEGATIVE (NEGATIVE); PROTEIN,URINE NEGATIVE (NEGATIVE); TRICYCLIC ANTIDEPRESSANTS SCRE NEGATIVE (NEGATIVE)
[2020-10-10 16:41] LABS: BACTERIA,URINE TRACE /HPF; LEUKOCYTE ESTERASE ,URINE NEGATIVE (NEGATIVE); RBC,URINE 0-2 /HPF; SQUAMOUS EPITHELIAL CELL,UR >50 /HPF
[2020-10-10 16:42] LABS: CREATININE SERUM 1.09 MG/DL (0.60-1.30); POTASSIUM 4.1 MMOL/L (3.6-5.0)
[2020-10-10 16:43] LABS: ALBUMIN 3.3 GM/DL (3.2-4.5); BILIRUBIN,TOTAL 0.4 MG/DL (0.1-1.0); CALCIUM 7.4 MG/DL (8.5-10.1); MAGNESIUM 1.6 MG/DL (1.6-2.4); TOTAL PROTEIN 5.7 GM/DL (6.4-8.2)
[2020-10-10] MEDS ORDERED: cefTRIAXone 1,000 MG in WATER (STERILE) FOR INJECTION 10 ML IV ONE (16:45)
[2020-10-10] MEDS ORDERED: DOXY100T2 PO ×2 (17:27→17:28)
[2020-10-10 17:35] VITALS: BP 101/64
[2020-10-10] MEDS ORDERED: CEPH500T PO (17:39)
== END 2020-10-10 17:39 | disposition home or self-care (01) ==
LOC: EDUNIT# 15:23 → ER FS 15:24
DX: N39.0 Urinary tract infection, site not specified (principal); I95.9 Hypotension, unspecified; R53.1 Weakness; J45.909 Unspecified asthma, uncomplicated; I10 Essential (primary) hypertension; F41.9 Anxiety disorder, unspecified; F32.9 Major depressive disorder, single episode, unspecified; Z20.822 Contact with and (suspected) exposure to COVID-19; Z79.899 Other long term (current) drug therapy
CPT/HCPCS: 36415; 70450; 71045; 80053; 80306; 81000; 83605; 83735; 85007; 85027; 86141; 87040; 96374

== ENCOUNTER 2022-01-08 10:27 | Inpatient (IN) | payer MEDICARE, BC ==
[~2022-01-08] VITALS: Ht 147.3 cm; Wt 60.0 kg
[~2022-01-08 10:27] MED LIST changes: +ACETAMINOPHEN 325 MG TABLET PO PRN; +ALPRAZolam 0.25 MG (XANAX) TAB PO PRN; +BISACODYL 10 MG SUPP (DULCOLAX) PR PRN; +CALCIUM CARBONATE 500 MG (TUMS) TAB.CHEW PO PRN; +CEPH500T PO; +DOCUSATE SODIUM 100 MG (COLACE) CAP PO PRN; +DOCUSATE SODIUM 100 MG (COLACE) CAP PO SCH; +DOXY100T2 PO; +FLEET ENEMA ADULT 1 EA BTL PR PRN; +LACTULOSE SYRUP 10GM/15ML (ENULOSE) 30ML UDC PO PRN; +LOPERAMIDE 2 MG (IMODIUM) TABLET PO PRN; +MELATONIN 3 MG TABLET PO PRN; +MONT-40 PO; -MONT10TA32 PO; +ONDANSETRON 4 MG (ZOFRAN) ORAL DISSOLVE TAB PO PRN; +diphenhydrAMINE 25 MG TAB (BENADRYL) PO PRN; +guaiFENesin/CODEINE (ROBITUSSIN AC) 10ML UDC PO PRN
[2022-01-08 10:30] VITALS: BP 139/62
--- NOTE | 2022-01-08 11:03 | Physical Therapy Evaluation ---
PT Evaluation-General Medical Diagnosis Admission Date Jan 08, 2022 at 10:27 Medical Diagnosis: S/P Total Rt hip arthroplasty Onset Date: Jan 06, 2022 Therapy Diagnosis Therapy Diagnosis: Gait deficit, strength deficit Precautions Precautions/Isolations: Fall Prevention Anterior hip precautions Weight Bear Status Right Lower Extremity: Right Weight Bearing/Tolerated Left Lower Extremity: Left Full Weight Bearing Referral Physician: Dr. Roberto Reason for Referral: Evaluation/Treatment Medical History Reviewed History: Yes Social History Home: Single Level Current Living Status: Alone Entry Into Home: Stairs With Railing PT Steps Into Home: 4 Patients daughter in law reports they are in the process of installing a ramp Prior Prior Level of Function SCALE: Activities may be completed with or without assistive devices. 0-Dqfsuhmqfj-svcqexi completes the activity by him/herself with no assistance from a helper. 5-Set-up or Clean-up Assistance-helper sets up or cleans up; patient completes activity. [place] assists only prior to or following the activity. 4-Supervision or Touching Assistance-helper provides verbal cues and/or touching/steadying and/or contact guard assistance as patient completes a ctivity. Assistance may be provided throughout the activity or intermittently. 3-Partial/Moderate Assistance-helper does LESS THAN HALF the effort. [place] lifts, holds or supports trunk or limbs, but provides less than half the effort. 2-Substantial/Maximal Assistance-helper does MORE THAN HALF the effort. [place] lifts or holds trunk or limbs and provides more than half the effort. 6-Fimuxwzxp-ouiskc does ALL the effort. Patient does none of the effort to complete the activity. Or, the assistance of 2 or more helpers is required for the patient to complete the activity. If activity was not attempted, code reason: 7-Patient Refused. 9-Not Applicable-not attempted and the patient did not perform the activity before the current illness, exacerbation or injury. 10-Not Attempted due to Environmental Limitations-(lack of equipment, weather restraints, etc.). 88-Not Attempted due to Medical Conditions or Safety Concerns. Bed Mobility: 6 Transfers (B,C,W/C): 6 Gait: 6 Stairs: 6 Indoor Mobility (Ambulation): Independent Stairs: Independent Prior Devices Use: Walker PT Evaluation-Current Subjective Patient presents to this rehab unit via private vehicle, agreeable to PT evaluation upon arrival. Patient currently rates right hip pain at 8/10 however notes she is also starting to get a migraine headache. Nurse notified. Pain Section J - Health Conditions 1. Rarely or not at all 2. Occasionally 3. Frequently 4. Almost constantly 8. Unable to answer Pain Effect on Sleep: 8 Pain Interference with Therapy: 8 Pain Interference w/Day-to-Day: 8 Pt/Family Goals Get stronger, become more independent or return to PLOF and return home. Objective Patient Orientation: Person, Place, Time, Situation Attachments: Other-See Comments wound vac right hip ROM/Strength ROM Lower Extremities Bilateral LEs limited in all ROMs due to pain. Right hip limited ~ 75% in all planes. Strength Lower Extremities Right hip 2+/5 all planes, right knee 3/5 flexion and extension, right ankle 3+/5 all planes Left LE 3+/5 all planes Neuromuscular (Tone, Coordination, Reflexes) Unable to assess at this time due to pain. Sensory Vision: Functional Hearing: Functional Sensation Right Lower Extremit: Intact Sensation Left Lower Extremity: Intact Transfers Roll Left & Right (QC): 88 Sit to Lying (QC): 88 Lying to Sitting/Side of Bed(Q: 88 Sit to Stand (QC): 3 Chair/Ess-sv-Vonqa Xfer(QC): 3 Toilet Transfer (QC): 88 Car Transfer (QC): 2 Gait Does the Patient Walk?: Yes Mode of Locomotion: Walk Anticipated Mode of Locomotion: Walk Walk 10 feet (QC): 3 Walk 50 ft with 2 Turns(QC): 88 Walk 150 ft (QC): 88 Walking 10ft/uneven surface-QC: 88 Distance: 30 Gait Assistive Device: FWW Wheelchair Training Does the Pt Use a Wheelchair?: Yes Distance: 20 Wheel 50 ft with 2 turns (QC): 88 Wheel 150 ft (QC): 88 Type of Wheelchair: Manual Stairs #of Steps: 0 1 Step (curb) (QC): 88 4 Steps (QC): 88 12 Steps (QC): 88 Unable to assess safely due to pain at this time Balance Sitting Static: Fair Sitting Dynamic: Fair Standing Static: Poor Standing Dynamic: Poor Picking up an Object (QC): 88 Assessment/Needs Patient reports right hip very painful and does not tolerate much activity. She requires max A for car transfers, mod A for sit to stand. Patient ambulates 30 feet with FWW, with min A and verbal cues for safety, progression, posture and conservation of energy. Patient propels w/c 20 feet with SBA. Patient in w/c post evaluation and left resting at this time due to reports of severe pain in right hip and nurse notified. Patient in w/c post eval with call light in reach, all needs met, nurse in the room and family in the room. 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 Rarely or not at all 2. Occasionally 3. Frequently 4. Almost constantly 8. Unable to answer Roll Left to Right (QC): 6 Sit to Lying (QC): 6 Lying-Sitting on Side/Bed(QC): 6 Sit to Stand (QC): 6 Chair/Ynn-hk-Fojgy Xfer(QC): 6 Toilet/Commode Transfer (QC): 6 Car Transfer (QC): 6 Does the Patient Walk: Yes Walk 10 feet (QC): 6 Walk 10ft-Uneven Surface(QC): 6 Walk 50ft with 2 Turns (QC): 4 Walk 150 ft (QC): 4 Gait Assistive Device: FWW Does the Pt use WC or Scooter?: Yes Wheel 50 feet with 2 turns (QC: 6 1 Step (curb) (QC): 4 4 Steps (QC): 4 12 Steps (QC): 4 Picking up an Object (QC): 4 Wheel 150 feet - 6 PT Plan Problem List Problem List: Activity Tolerance, Functional Strength, Safety, Balance, Gait, Transfer, Bed Mobility, ROM Treatment/Plan Treatment Plan: Continue Plan of Care Treatment Plan: Bed Mobility, Education, Functional Activity Kaila, Functional Strength, Group Therapy, Gait, Safety, Therapeutic Exercise, Transfers Treatment Duration: Mar 21, 2022 Frequency: At least 5 of 7 days/Wk (IRF) Estimated Hrs Per Day: 1.5 hours per day Patient and/or Family Agrees t: Yes Safety Risks/Education Patient Education: Gait Training, Transfer Techniques, W/C Management Teaching Recipient: Patient, Family Teaching Methods: Demonstration, Discussion Response to Teaching: Reinforcement Needed Time/GCodes Time In: 1030 Time Out: 1040 Total Billed Treatment Time: 10 Total Billed Treatment Visit, APRYL NICHOLS PT Jan 08, 2022 11:03
[2022-01-08] MEDS ORDERED: ESOM40CA52 PO (11:05)
[2022-01-08] MEDS ORDERED: CHOL200052 PO (11:05)
[2022-01-08] MEDS ORDERED: SUMA50TA2 PO (11:05)
[2022-01-08] MEDS ORDERED: DOCU100C37 PO (11:05)
[2022-01-08] MEDS ORDERED: VITA1TAB17 PO (11:05)
[2022-01-08] MEDS ORDERED: TOPI100T11 PO (11:05)
[2022-01-08] MEDS ORDERED: PROM25TA14 PO (11:05)
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
[2022-01-08] MEDS ORDERED: METR45CR TP (12:22)
[2022-01-08] MEDS ORDERED: NF-CLINGEL TP (12:22)
[2022-01-08] MEDS ORDERED: HYDR50TA76 PO (12:22)
--- NOTE | 2022-01-08 12:26 | ST Cognitive Linguistic Eval ---
Speech Evaluation-General Medical Diagnosis S/P Total Rt Hip Arthroplasty Onset Date: Jan 06, 2022 Therapy Diagnosis Therapy Diagnosis: Intact Cognition Precautions Precautions: Fall, Hip Precautions/Isolations: Fall Prevention, Standard Precautions Referral Referring Physician: Dr. Roberto Reason for Referral: Evaluation/Treatment Medical History Current History The patient is a 66 year-old female, who is s/p a right RUIZ. Social History Current Living Status: Alone Speech PLF-Current Status Prior Level of Function The patient denied prior or recent concerns with her speech, language or cognition. Subjective The patient was seated upright in her wheelchair, awake and alert, upon entrance to her room by the clinician. The patient greeted the clinician appropriately and was agreeable to participation in the cognitive linguistic assessment. Language Eval: Auditory Comprehends Simple Yes/No Ques: Functional Indent/Objects Multiple Shukla: Functional Follows 1-Step Commands: Functional Follows General Conversations: Functional The patient does display decreased processing speeds, however, does consistently respond appropriately. Language Eval: Verbal Language Completes Spontaneous Greeting: Functional Produces Auto, Serial Info: Functional Imitates Simple Words/Phrases: Functional Word Finding: Functional Requests Basic Needs: Functional States Basic Personal Info: Functional Language Evaluation: Reading Follows Simple Written Direct: Functional Language Evaluation: Writing Writes to Simple Dictation: Functional Cognitive Patient Orientation The patient demonstrated independent orientation to month, day of the week, date, and year. Objective Cognitive Domain Attention: WNL Memory: WNL Problem Solving: Functional Visuospatial Skills: WNL Composite Severity Rating: WNL Clock Drawing Severity Rating: WNL Objective Formal/Standardized Tests [facility] Mental Status Exam ([facility]) Results The patient demonstrated a result of +30/30 on the SLUMS correlating to cognitive linguistic skills within normal limits. Oral Motor/Speech Production The patient does not display dysarthria or apraxia of speech. The patient does display a decreased rate of speech overall. Impression The patient demonstrated cognitive linguistic skills within normal limits. Speech Patient Assess Expression of Ideas/Wants: Expression (4) Understanding Verbal Content: Understands (4) Brief Interview-Mental Status: Yes Repetition of Three Words: Three (3) Temporal Orientation: Year: Correct (3) Temporal Orientation: Month: Accurate within 5 days(2) Temporal Orientation: Day: Correct (1) Recall : Wear to say "Sock": Yes, no cue required (2) Recall : Color: Yes, no cue required (2) Recall : Bed: Yes, no cue required (2) Memory/Recall Ability: Current season, That he or she is in a hsp/hsp unit Speech-Plan Treatment Plan Speech Therapy Treatment Plan: Discontinue ST Treatment Duration: Jan 08, 2022 Frequency: 1 time per week Estimated Hrs Per Day: .5 hour per day Rehab Potential: Guarded Safety Risks/Education Teaching Recipient: Patient Teaching Methods: Discussion Response to Teaching: Verbalize Understanding Education Topics Provided: Results, Recommendations, Plan of Care Time Speech Therapy Time In: 12:15 Speech Therapy Time Out: 12:45 Total Billed Time: 30 Billed Treatment Time 1, CALE MEJÍA ELIZAB[address] ST Jan 08, 2022 12:26
[2022-01-08] MEDS ORDERED: NON-FORMULARY MEDICATION 1 EA EA (Hydroxyzine HCl 50 MG) PO PRN (12:45)
[2022-01-08] MEDS ORDERED: (Linaclotide (Linzess) 290 MCG) PO SCH (12:45)
[2022-01-08] MEDS ORDERED: CLINDAMYCIN PHOS TOP PRN (12:45)
[2022-01-08] MEDS ORDERED: NON-FORMULARY MEDICATION 1 EA EA (Zolpidem Tartrate (Ambien) 10 MG) PO PRN (12:45)
[2022-01-08] MEDS ORDERED: NON-FORMULARY MEDICATION 1 EA EA (Metronidazole 1 APPLIC) TOP PRN (12:45)
[2022-01-08] MEDS ORDERED: hydrOXYzine (VISTARIL/ATARAX) 25 MG capsule/tablet PO PRN (13:00)
--- NOTE | 2022-01-08 13:02 | Physical Therapy Daily Note ---
PT Daily Note-Current Subjective Patient in WC pre tx, agrees to PT, has 10/10 pain in right leg, nurse is in room and is aware of her pain. Will be co-treating with OT due to poor patient mobility, strength, endurance, severe pain with activity, coordinate UE and LE with activity, safety and reduce risk of falls. Pain Section J - Health Conditions 1. Rarely or not at all 2. Occasionally 3. Frequently 4. Almost constantly 8. Unable to answer Pain Effect on Sleep: 8 Pain Interference with Therapy: 8 Pain Interference w/Day-to-Day: 8 Appearance Patient in WC at bedside post tx with nurse call, phone, tray, all needs met. Mental Status Patient Orientation: Person, Place, Situation wound vac Transfers SCALE: Activities may be completed with or without assistive devices. 8-Lzewvbamro-hcdxlfc completes the activity by him/herself with no assistance from a helper. 5-Set-up or Clean-up Assistance-helper sets up or cleans up; patient completes activity. [place] assists only prior to or following the activity. 4-Supervision or Touching Assistance-helper provides verbal cues and/or touching/steadying and/or contact guard assistance as patient completes activity. Assistance may be provided throughout the activity or intermittently. 3-Partial/Moderate Assistance-helper does LESS THAN HALF the effort. [place] lifts, holds or supports trunk or limbs, but provides less than half the effort. 2-Substantial/Maximal Assistance-helper does MORE THAN HALF the effort. [place] lifts or holds trunk or limbs and provides more than half the effort. 7-Prmorfbtk-qkcwls does ALL the effort. Patient does none of the effort to complete the activity. Or, the assistance of 2 or more helpers is required for the patient to complete the activity. If activity was not attempted, code reason: 7-Patient Refused. 9-Not Applicable-not attempted and the patient did not perform the activity before the current illness, exacerbation or injury. 10-Not Attempted due to Environmental Limitations-(lack of equipment, weather restraints, etc.). 88-Not Attempted due to Medical Conditions or Safety Concerns. Roll Left & Right (QC): 3 Sit to Lying (QC): 3 Lying to Sitting/Side of Bed(Q: 3 Sit to Stand (QC): 3 Chair/Gcy-vb-Mswdl Xfer(QC): 4 Patient performed rolling and supine <-> sit min assist, sit <-> stand min assist, transfers CGA. PT performed standing and positioning and safety during dressing. Weight Bearing Right Lower Extremity: Right Weight Bearing/Tolerated Left Lower Extremity: Left Full Weight Bearing Gait Training Distance: 15' Walk 10 feet (QC): 4 Gait Persons Needed: 1 Gait Assistive Device: FWW WC follow, very slow, antalgic, poor step through on right side Wheelchair Training Does the Pt Use a Wheelchair?: Yes Wheel 50 ft with 2 turns (QC): 3 Type of Wheelchair: Manual 50', min assist, cues for direction Stair Training Stair Training: Handrails/: uses walker #of Steps: 1 1 Step (curb) (QC): 3 Stairs: Pattern: Step to Patient can go up and down 1 step using a rolling walker with min assist, careful cues for foot placement and safety. Balance Picking up an Object (QC): 4 (CGA using a photolettering machine operator) Exercises Patient performed one standing exercise while performing an UE activity with OT but also working on weight bearing on right leg and endurance and strength. Treatments PT performed standing and positioning during dressing, WC mobility, ambulation, standing activity, stair training, bed mobility and transfers, OT performed UE activity, dressing, UE positioning and safety during activity. Assessment Current Status: Poor Progress Patient has poor motivation, cries from seemingly insignificant reasons or seems to have panic attacks. PT Biomass Boiler Operator Goals Biomass Boiler Operator Goals PT Long-Term Goals Time Frame: Jan 30, 2022 Roll Left & Right (QC): 6 Sit to Lying (QC): 6 Lying-Sitting on Side/Bed(QC): 6 Sit to Stand (QC): 6 Chair/Qyr-pz-Ijxrv Xfer(QC): 6 Toilet Transfer (QC): 6 Car Transfer (QC): 6 Does the Patient Walk: Yes Walk 10 feet (QC): 6 Walk 50ft with 2 Turns (QC): 4 Walk 150 ft (QC): 4 Walking 10ft on Uneven Surface: 6 1 Step (curb) (QC): 4 4 Steps (QC): 4 12 Steps (QC): 4 Picking up an Object (QC): 4 Does the Pt use WC or Scooter?: Yes Wheel 50 feet with 2 turns (QC: 6 Wheel 150 feet: 6 PT Plan Problem List Problem List: Activity Tolerance, Functional Strength, Safety, Balance, Gait, Transfer, Bed Mobility, ROM Treatment/Plan Treatment Plan: Continue Plan of Care Treatment Plan: Bed Mobility, Education, Functional Activity Kaila, Functional Strength, Group Therapy, Gait, Safety, Therapeutic Exercise, Transfers Treatment Duration: Mar 21, 2022 Frequency: At least 5 of 7 days/Wk (IRF) Estimated Hrs Per Day: 1.5 hours per day Patient and/or Family Agrees t: Yes Safety Risks/Education Patient Education: Gait Training, Transfer Techniques, Steps, Reviewed Precaut ions, Correct Positioning, Safety Issues Teaching Recipient: Patient Teaching Methods: Demonstration, Discussion Response to Teaching: Reinforcement Needed Time/GCodes Time In: 1100 Time Out: 1215 Total Billed Treatment Time: 75 Total Billed Treatment 1 visit FA 75' co-treated with OT from [id number] SALVATORE GRAMAJO PT Jan 08, 2022 13:02
[2022-01-08] MEDS ORDERED: ACETAMINOPHEN 325 MG TABLET PO SCH (14:00)
[2022-01-08] MEDS: GABAPENTIN 600 MG (NEURONTIN) TAB PO SCH ×3 (14:03→21:12)
[2022-01-08] MEDS: SENNA W/DOCUSATE (SENOKOT S) TABLET PO SCH ×3 (14:07→21:13)
[2022-01-08] MEDS: DOCUSATE SODIUM 100 MG (COLACE) CAP PO SCH (14:07)
[2022-01-08] MEDS: polyethylene glycoL POWDER 17 GM (MIRALAX) PACK PO SCH ×2 (14:08→19:49)
--- OUTSIDE RECORDS SUMMARY | 2022-01-08 14:09 | XMS REPORT | Clinical Summary ---
Author Author [facility] Organization [facility] Address Unknown Phone Unavailable Care Team Providers Care Color Consultant Name Role Phone Mak Hartmann MD Unavailable Unavailable Source Comments Some departments are not documenting in the electronic medical record. If you d o not see the information that you expected, contact Release of Information in [facility] Home-Account Information Management department at [phone] for further assistan ce in locating additional records.[facility] Allergies Comments Active Allergy Reactions Severity Noted Date Morphine ITCHING 04/05/2012 [place]quitos HIVES 04/05/2012 Medications End Date Status Medication Sig Dispensed Refills Start Date Active traZODone (DESYREL) 50 mg Take 50 mg by 0 tablet mouth at bedtime daily. Active zolpidem (AMBIEN) 10 mg Take 10 mg by 0 tablet mouth at bedtime as needed. Active ALPRAZolam (XANAX) 0.5 mg Take 0.5 mg 0 tablet by mouth at bedtime as needed. Active baclofen (LIORESAL) 10 mg Take 10 mg by 0 tablet mouth three times daily. Active buPROPion XL (WELLBUTRIN Take 300 mg 0 XL) 300 mg tablet by mouth every morning. Active gabapentin (NEURONTIN) Take 600 mg 0 600 mg tablet by mouth three times daily. Active clonazePAM (KLONOPIN) 0.5 Take 0.5 mg 0 mg tablet by mouth twice daily. Active estrogens, conjugated Take 0.3 mg 0 (PREMARIN) 0.3 mg tablet by mouth daily. Active HYDROcodone-acetaminophen Take 1 Tab by 0 (+) (LORTAB) 7.5-500 mg mouth every 4 tablet hours as needed. Active mupirocin (BACTROBAN) 2 % Apply to 0 topical ointment affected area three times daily. Active levofloxacin (LEVAQUIN) Take 500 mg 0 500 mg tablet by mouth daily. Active meloxicam(+) (MOBIC) 15 Take 15 mg by 0 mg tablet mouth daily. Active tolterodine LA(+) (DETROL Take 4 mg by 0 LA) 4 mg capsule mouth daily. Active trimethoprim-sulfamethoxa Take 1 Tab by 0 zole (SMZ-TMP DS) 160-800 mouth twice mg tablet daily. Active esomeprazole DR(+) Take 40 mg by 0 (NEXIUM) 40 mg capsule mouth every morning. Active doxycycline (VIBRAMYCIN) Take 100 mg 0 100 mg tablet by mouth twice daily. Active predniSONE (DELTASONE) 20 Take 20 mg by 0 mg tablet mouth daily. Active permethrin (ELIMITE) 5 % Apply to 0 topical cream affected area once. Active SUMAtriptan (IMITREX) 50 Take 50 mg by 0 mg tablet mouth once as needed. Active triamcinolone acetonide Apply to 0 (KENALOG) 0.1 % topical affected area cream twice daily. Active hydrOXYzine (ATARAX) 25 Take 25 mg by 0 mg tablet mouth three times daily as needed. Active tretinoin (RETIN-A) 0.025 Apply to 0 % topical cream affected area at bedtime daily. Active phentermine(+) 37.5 mg Take 37.5 mg 0 tablet by mouth every morning. Active DULoxetine DR (CYMBALTA) Take 60 mg by 0 60 mg capsule mouth daily. Active epinephrine(+) (EPIPEN Inject 0.3 mg 0 2-YESIKA) 1 mg/mL injection to area(s) as pen directed once as needed. Active Problems No known active problems Family History Medical History Relation Name Comments Cancer Father skin cancer Relation Name Status Comments Father Social History Date Tobacco Use Types Packs/Day Years Used Never Smoker Smokeless Tobacco: Never Used Tobacco Cessation: Counseling Given: No Comments Alcohol Use Standard Drinks/Week No 0 (1 standard drink = 0.6 o z pure alcohol) Sex Assigned at Date Recorded Not on file Obstetrics History Last Filed Vital Signs Reading Time Taken Comments Vital Sign 124/78 04/05/2012 3:17 PM [employer] Blood Pressure - - Pulse - - Temperature - - Respiratory Rate - - Oxygen Saturation - - Inhaled Oxygen Concentration 64.1 kg (141 lb 6.4 oz) 04/05/2012 3:17 PM [employer] MA[employer] Weight 152.4 cm (5') 04/05/2012 3:17 PM [employer] SERV[employer] MANA[employer] Height 27.62 04/05/2012 3:17 PM [employer] MANAGER Body Mass Index Plan of Treatment Health Maintenance Due Date Last Done Comments COVID-19 VACCINE (#1) 1954 DTAP/TDAP VACCINES (1 - 1972 Tdap) HEPATITIS C SCREENING 1972 PHYSICAL (COMPREHENSIVE) 1972 EXAM BREAST CANCER SCREENING 1994 COLORECTAL CANCER 06/09/1999 SCREENING SHINGLES RECOMBINANT 2004 VACCINE (1 of 2) OSTEOPOROSIS 06/09/2019 SCREENING/MONITORING PNEUMOCOCCAL VACCINE (1 - 06/09/2019 PCV) DEPRESSION SCREENING 03/22/2021 INFLUENZA VACCINE 10/20/2021 Results Not on filefrom Last 3 Months Care Teams Start Date End Date Color Consultant Relationship Specialty 04/05/12 Mak Hartmann MD Dermatology FORWARDING ADDRESS UNKNOWN
[2022-01-08] MEDS ORDERED: RELABEL FOR HOME USE MC SCH (14:15)
[2022-01-08] MEDS ORDERED: NON-FORMULARY MEDICATION 1 EA EA (Levocetirizine Dihydrochloride 5 MG) PO SCH (18:00)
[2022-01-08] MEDS: LORATADINE (CLARITIN) 10 MG TAB PO SCH (18:05)
[2022-01-08 20:00] VITALS: BP 104/55
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
[2022-01-08] MEDS: toPIRamate 100 MG (TOPAMAX) TAB PO SCH (21:10)
[2022-01-08] MEDS: ZOLPIDEM 5 MG (AMBIEN) TAB PO PRN (21:11)
[2022-01-08] MEDS: traZODone 50 MG (DESYREL) TAB PO SCH (21:12)
[2022-01-08] MEDS: ACETAMINOPHEN 325 MG TABLET PO SCH (21:12)
[2022-01-08] MEDS: SUMAtriptan 50 MG (IMITREX) TAB PO PRN (21:15)
[2022-01-09 05:44] LABS: BASOPHILS # (AUTO) 0.1 10^3/uL (0.0-0.1); BASOPHILS % (AUTO) 1 % (0-10); EOSINOPHILS # (AUTO) 0.3 10^3/uL (0.0-0.3); EOSINOPHILS % (AUTO) 3 % (0-10); HEMATOCRIT 32 % (35-52); HEMOGLOBIN 10.9 g/dL (11.5-16.0); LYMPHOCYTES # (AUTO) 1.8 10^3/uL (1.0-4.0); LYMPHOCYTES % (AUTO) 23 % (12-44); MEAN CORPUSCULAR HEMOGLOBIN 34 pg (25-34); MEAN CORPUSCULAR HGB CONC 34 g/dL (32-36); MEAN CORPUSCULAR VOLUME 101 fL (80-99); MEAN PLATELET VOLUME 9.5 fL (9.0-12.2); MONOCYTES # (AUTO) 0.4 10^3/uL (0.0-1.0); MONOCYTES % (AUTO) 5 % (0-12); NEUTROPHILS # (AUTO) 5.4 10^3/uL (1.8-7.8); NEUTROPHILS % (AUTO) 68 % (42-75); PLATELET COUNT 256 10^3/uL (130-400)
[2022-01-09 06:04] LABS: CALCIUM 8.4 MG/DL (8.5-10.1)
[2022-01-09 06:05] LABS: TOTAL PROTEIN 5.6 GM/DL (6.4-8.2)
--- NOTE | 2022-01-09 06:06 | PM&R Progress Note ---
Subjective HPI/CC On Admission Date Seen by Provider: Jan 09, 2022 Time Seen by Provider: 12:30 Subjective/Events-last exam 01/09/2022: Patient medically stable Replacing potassium All she wants to talk about is her pain medication and the fact she takes more at home than she does here Family and other doctors who have treated her all want to minimize pain medication and I informed her we will do that Bowels are moving Checked meds and labs Review of Systems General: Fatigue, Malaise Musculoskeletal: leg pain Objective Exam Vital Signs Vital Signs Date Time Temp Pulse Resp B/P (MAP) Pulse Ox O2 Delivery O2 Flow Rate FiO2 01/09/22 21:50 Room Air 01/09/22 20:39 37.2 81 16 115/72 (86) 96 Capillary Refill : General Appearance: No Apparent Distress, WD/WN, Chronically ill, Thin, Other (Frail) HEENT: PERRL/EOMI, Normal ENT Inspection, Pharynx Normal Neck: Full Range of Motion, Normal Inspection, Non Tender, Supple, Carotid Bruit Respiratory: Chest Non Tender, Lungs Clear, Normal Breath Sounds, No Accessory Muscle Use, No Respiratory Distress Cardiovascular: Regular Rate, Rhythm, No Edema, No Gallop, No JVD, No Murmur, Normal Peripheral Pulses Gastrointestinal: Normal Bowel Sounds, No Organomegaly, No Pulsatile Mass, Non Tender, Soft Back: Normal Inspection, No CVA Tenderness, No Vertebral Tenderness Extremity: Normal Capillary Refill, Normal Inspection, Normal Range of Motion (Except for right leg), Non Tender, No Calf Tenderness, No Pedal Edema Neurologic/Psychiatric: Alert, Oriented x3, Normal 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 FIM Transfers Therapy Code Descriptions/Definitions Functional [place] Measure: 0=Not Assessed/NA 4=Minimal Assistance 1=Total Assistance 5=Supervision or Setup 2=Maximal Assistance 6=Modified [place] 3=Moderate Assistance 7=Complete IndependenceSCALE: Activities may be completed with or without assistive devices. 0-Hfkkurxwux-endmzhn completes the activity by him/herself with no assistance from a helper. 5-Set-up or Clean-up Assistance-helper sets up or cleans up; patient completes activity. Jet assists only prior to or following the activity. 4-Supervision or Touching Assistance-helper provides verbal cues and/or touching/steadying and/or contact guard assistance as patient completes acti vity. Assistance may be provided throughout the activity or intermittently. 3-Partial/Moderate Assistance-helper does LESS THAN HALF the effort. Jet lifts, holds or supports trunk or limbs, but provides less than half the effort. 2-Substantial/Maximal Assistance-helper does MORE THAN HALF the effort. Jet lifts or holds trunk or limbs and provides more than half the effort. 4-Rvxlfdtrj-xvfuqj does ALL the effort. Patient does none of the effort to complete the activity. Or, the assistance of 2 or more helpers is required for the patient to complete the activity. If activity was not attempted, code reason: 7-Patient Refused. 9-Not Applicable-not attempted and the patient did not perform the activity before the current illness, exacerbation or injury. 10-Not Attempted due to Environmental Limitations-(lack of equipment, weather restraints, etc.). 88-Not Attempted due to Medical Conditions or Safety Concerns. Roll Left to Right (QC): 3 Sit to Lying (QC): 3 Sit to Stand (QC): 3 Chair/Fbq-tc-Bxwlk Xfer(QC): 4 Car Transfer (QC): 2 Gait Training Does the Patient Walk?: Yes Distance: 15' Walk 10 feet (QC): 4 Walk 50 ft with 2 Turns(QC): 88 Walk 150 ft (QC): 88 Walking 10ft/uneven surface-QC: 88 Gait Persons Needed: 1 Gait Assistive Device: FWW Wheelchair Training Does the Pt Use a Wheelchair?: Yes Distance: 20 Wheel 50 ft with 2 turns (QC): 3 Wheel 150 ft (QC): 88 Type of Wheelchair: Manual Stair Training Stair Training: Handrails/: uses walker #of Steps: 1 1 Step (curb) (QC): 3 4 Steps (QC): 88 12 Steps (QC): 88 Stairs: Pattern: Step to Balance Picking up an Object (QC): 4 (CGA using a supervisor beehive kiln) ADL-Treatment Eating (QC): 4 Oral Hygiene (QC): 07 Shower/Bathe Self (QC): 7 (Refused due to pain. Clarification will be needed on showering with wound vac.) Upper Body Dressing (QC): 07 Lower Body Dressing (QC): 3 On/Off Footwear (QC): 1 Toileting Hygiene (QC): 07 Assessment/Plan Assessment and Plan Assess & Plan/Chief Complaint Assessment: Right hip replacement by Dr. Singer uncomplicated Slow recovery Chronic debility Chronic pain syndrome Narcotic and benzodiazepine dependence Severe scoliosis in need of extensive surgery Fibromyalgia Severe hypokalemia Plan: Supportive care Monitor closely Pain control but minimize medication Aggressive PT and OT Monitor potassium 01/09/2022: Minimize pain meds Replace potassium (1) Generalized weakness Status: Acute (2) S/P hip replacement ANIKET GA DO Jan 09, 2022 06:06
[2022-01-09 06:07] LABS: BILIRUBIN,TOTAL 0.4 MG/DL (0.1-1.0)
[2022-01-09 06:09] LABS: CREATININE SERUM 0.73 MG/DL (0.60-1.30)
--- NOTE | 2022-01-09 06:16 | Individualized Plan of Care ---
Individualized Plan of Care Rehab Nursing IPOC Order Admission Date Jan 08, 2022 at 10:27 Current Orders Orders Admission Order(Inpt,Obs,Sdc) (01/07/22 16:18) Vital Signs: Per Unit Policy ( 08,16,00 (01/07/22 16:18) Gurmeet Carlos (01/07/22 16:18) Sequential Compression Device (01/07/22 16:18) Edger Automatic-Inpt Rehab Con (01/07/22 16:18) Rehab Nursing Orders-Ipoc (01/07/22 16:18) Physical Therapy Rehab Orders (01/07/22 16:18) Occupational Therapy Rehab Ord (01/07/22 16:18) Speech Therapy Rehab Orders (01/07/22 16:18) Cbc With Automated Diff (01/09/22 06:00) Comprehensive Metabolic Panel (01/09/22 06:00) Precautions (Aru) (01/07/22 16:18) Rehab-Intensity Of Therapy (01/07/22 16:18) Initiate Admission Nursing Pro .admission (01/07/22 16:18) Alprazolam Tablet (Xanax Tablet) (01/07/22 16:30) Calcium Carbonate Chew Tablet (Antacid C (01/07/22 16:30) Diphenhydramine Tablet (Benadryl Tablet) (01/07/22 16:30) Docusate Sodium Capsule (Colace Capsule) (01/07/22 21:00) Docusate Sodium Capsule (Colace Capsule) (01/07/22 16:30) Bisacodyl Suppository (Dulcolax Supposit (01/07/22 16:30) Lactulose Oral Solution (Enulose Oral So (01/07/22 16:30) Na Phos/Na Biphos Enema (Fleet Enema Wes (01/07/22 16:30) Guaifenesin/Codeine Syrup (Robitussin Ac (01/07/22 16:30) Loperamide Tablet (Imodium Tablet) (01/07/22 16:30) Melatonin Tablet (Melatonin Tablet) (01/07/22 16:30) Polyethylene Glycol Powder Pkt (Miralax (01/07/22 21:00) Ondansetron Oral Dissolve Tab (Zofran (01/07/22 16:30) Senna S Tablet (Senokot S Tablet) (01/07/22 21:00) Acetaminophen Tablet/Caplet (Tylenol T (01/07/22 16:30) Code/Resuscitation (01/07/22 16:18) Admission Arrival Bed Request (01/08/22 10:27) Code/Resuscitation (01/08/22 11:53) General/Regular (01/08/22 Lunch) Patient Visit (01/08/22 ) Speech Sound Lang Comp (01/08/22 ) Treat. Speech/Lang/Voice (01/08/22 ) Atorvastatin Tablet (Lipitor Tablet) (01/09/22 09:00) Clonazepam Tablet (Klonopin Tablet) (01/08/22 12:45) Docusate Sodium Capsule (Colace Capsule) (01/08/22 21:00) Gabapentin Capsule/Tablet (Neurontin Cap (01/08/22 13:00) Montelukast Tablet (Singulair Tablet) (01/09/22 09:00) Promethazine Tablet (Phenergan Tablet) (01/08/22 12:45) Sumatriptan Tablet (Imitrex Tablet) (01/08/22 12:45) Topiramate Tablet (Topamax Tablet) (01/08/22 21:00) Trazodone Tablet (Desyrel Tablet) (01/08/22 21:00) (Nf) Cholecalciferol (Vitamin D3) (Vitam (01/09/22 09:00) (Nf) Clindamycin Phos (Clindamycin Phosp (01/08/22 12:45) (Nf) Esomeprazole Magnesium (01/09/22 09:00) (Nf) Hydroxyzine Hcl (01/08/22 12:45) (Nf) Levocetirizine Dihydrochloride (01/08/22 18:00) (Nf) Linaclotide (Linzess) (01/08/22 12:45) (Nf) Metronidazole (01/08/22 12:45) (Nf) Vitamin B Complex (01/09/22 09:00) (Nf) Zolpidem Tartrate (Ambien) (01/08/22 12:45) Cholecalciferol Capsule/Tablet (Vitamin (01/09/22 09:00) Pantoprazole Tablet (Protonix Tablet) (01/09/22 09:00) Zolpidem Tablet (Ambien Tablet) (01/08/22 12:45) Acetaminophen Tablet/Caplet (Tylenol T (01/08/22 14:00) Oxycodone Immediate Rel Tablet (Oxyir Ta (01/08/22 13:00) Loratadine Tablet (Claritin Tablet) (01/08/22 18:00) Hydroxyzine Cap/Tab (Vistaril) (01/08/22 13:00) Therapeutic Multivitamin Tab (Vitamins, (01/09/22 07:00) Patient Visit (01/08/22 ) Functional Activities, Ea 15 (01/08/22 ) Relabel For Home Use (Relabel For Home U (01/08/22 14:15) Ensure Plus Vanilla (01/08/22 14:43) Acetaminophen Tablet/Caplet (Tylenol T (01/08/22 22:00) Magnesium (01/09/22 05:43) Iron Test (Fe) (01/09/22 05:43) Vitamin B 12 (01/09/22 05:43) Potassium Chloride (Tablet) (K Dur Table (01/09/22 08:00) Patient Visit (01/09/22 ) Gait Training, Ea 15 Min (01/09/22 ) Exercise Therap, Ea 15 Min (01/09/22 ) Rehab Nursing Orders: Ongoing Assess. of Cognitive Status, Ongoing Assess. of Function Status, Bladder Management, Bladder Scan, Bladder Training, Bowel Management, Bowel Training, Disease Management & Educaiton, DVT Prophylaxis, Fall Prevention, Fluid/Electrolyte/Nutrition Mgmt, Infection Prevention, Medication Management & Education, Management of Risks & Complications, Management of Skin Intergrity, Nutrition Management, Pain Management, Patient/Family Support, Safety Management Intensity of Therapy to be met Patient to be seen: Min.3h per day/5 of 7d PT IPOC Problem List: Activity Tolerance, Functional Strength, Safety, Balance, Gait, Transfer, Bed Mobility, ROM Treatment Plan: Continue Plan of Care Bed Mobility, Education, Functional Activity Kaila, Functional Strength, Group Therapy, Gait, Safety, Therapeutic Exercise, Transfers Treatment Duration: Mar 21, 2022 Frequency: At least 5 of 7 days/Wk (IRF) Estimated Hrs Per Day: 1.5 hours per day OT IPOC Problems: Decreased Activ Tolerance, Decreased Safety Aware, Decreased UE Strength, Impaired Cognition, Impaired Coordination, Impaired Funct Balance, Impaired I ADL's, Impaired Self-Care Skills, Restricted Funct UE ROM OT Treatment, Training and Edu: Yes Plan of Care: ADL Retraining, Caregiver Training, Functional Mobility, Group Exercise/Act as Ind, UE Funct Exercise/Act Treatment Duration: Jan 29, 2022 Frequency: At least 5 of 7 days/Wk (IRF) Estimated Hrs Per Day: 1.5 hours per day (60-90 min/day) ST IPOC Speech Therapy Treatment Plan: Discontinue ST Treatment Duration: Jan 08, 2022 Frequency: 1 time per week Estimated Hrs Per Day: .5 hour per day Edger Automatic/Case Mgmt Edger Automatic/Case Managemen: Discharge Planning Dietitian/Computer Operations Analyst Dietitian/Computer Operations Analyst to monitor nutritional status and make changes and/or rec ommendations as needed and work with speech pathology on dietary upgrades as the occur. Physician IPOC Medical Issues being managed closely and that require the 24 hour availability of a physician: Recent hip replacement and chronic benzo and narcotic dependence with severe hypokalemia and severe debility frail status post severe scoliosis will require close monitoring from physician supervision to prevent decompensation Medical Issues: Bowel/Bladder Function, DVT Prophylaxis, Falls Precautions, Fluid/Electrolyte/Nutrition Balance, Infection Protection, Pain Management, Wound Care Brief Synthesis of Preadmission Screen, Post-Admission Evaluation, and Therapy Evaluations: PT and OT will focus on regaining function with use of assistive devices and increase stamina with ambulation and help with independence in ADLs in order to return back home to independent living Medical Prognosis: Fair Anticipated Length of Stay: 7 days ANIKET GA DO Jan 09, 2022 06:16
[2022-01-09] MEDS: MULTIVIT W/MINERALS TAB (THERAGRAN M) PO SCH (06:26)
[2022-01-09] MEDS: ACETAMINOPHEN 325 MG TABLET PO SCH ×3 (06:27→22:09)
[2022-01-09 07:27] VITALS: BP 143/82
--- NOTE | 2022-01-09 07:52 | Physician Query Clarification ---
CHELSEA SHARMA 01/09/22 0752: PQD17 Principal Diagnosis Principal Diagnosis Document Diagnosis QUESTION: Please specify the condition(s) that was chiefly responsible for o ccasioning the admission to the hospital after study/evaluation based on your medical judgment. Clinical Indicators/Findings On Admit/Eval/Treatment: Patient admitted to IRF s/p Rt THR. Please document the condition responsible for the Rt. THR Heel Cementer Note Heel Cementer Note In responding to this query, please exercise your independent professional judgment. The purpose of this communication is to more accurately reflect the complexity of your patients condition. The fact that a question is asked does not imply that any particular answer is desired or expected. Thank you for your timely response to this clarification. Requestors name: Chelsea THIS PHYSICIAN QUERY FORM IS A PERMANENT PART OF THE MEDICAL RECORD ANIKET GA DO 01/09/22 1021: PQD17 Principal Diagnosis Question Chief Reason for Admission Aft: CHELSEA Ivy Jan 09, 2022 07:52 ANIKET GA DO Jan 09, 2022 10:21
[2022-01-09] MEDS: toPIRamate 100 MG (TOPAMAX) TAB PO SCH ×2 (08:55→22:09)
[2022-01-09] MEDS: VITAMIN D3 25 MCG (1,000 UNITS) TABLET PO SCH (08:55)
[2022-01-09] MEDS: KCL 20 MEQ TAB (K-DUR) PO SCH ×3 (08:55→17:39)
[2022-01-09] MEDS: polyethylene glycoL POWDER 17 GM (MIRALAX) PACK PO SCH ×2 (08:55→22:20)
[2022-01-09] MEDS: SENNA W/DOCUSATE (SENOKOT S) TABLET PO SCH ×2 (08:57→22:20)
[2022-01-09] MEDS: MONTELUKAST 10 MG (SINGULAIR) TAB PO SCH (08:57)
[2022-01-09] MEDS: GABAPENTIN 600 MG (NEURONTIN) TAB PO SCH ×4 (08:58→22:09)
[2022-01-09] MEDS: PANTOPRAZOLE 40 MG (PROTONIX) TAB PO SCH ×2 (08:58→11:27)
[2022-01-09] MEDS ORDERED: NON-FORMULARY MEDICATION 1 EA EA (Cholecalciferol (Vitamin D3) (Vitamin D3) 50 MCG) PO SCH (09:00)
[2022-01-09] MEDS ORDERED: NON-FORMULARY MEDICATION 1 EA EA (Esomeprazole Magnesium 40 MG) PO SCH (09:00)
[2022-01-09] MEDS ORDERED: NON-FORMULARY MEDICATION 1 EA EA (Vitamin B Complex 1 EACH) PO SCH (09:00)
--- NOTE | 2022-01-09 10:29 | Occupational Ther Daily Note ---
OT Current Status-Daily Note Subjective Pt alert, sitting in recliner. Pt agrees to therapy though requires encouragement to participate at times throughout therapy. Pt c/o pain though does not rate. Pt continually talked about not having her normal dosage of pain meds. Co-treat with PT [id number], skills of 2 clinicians required due to pt's increased pain and to decrease fall risk during functional task. PT focusing on standing, ambulation and OT focusing on ADLs and functional mobility. Mental Status/Objective Patient Orientation: Person, Place, Time, Situation Attachments: Drains (wound vac) ADL-Treatment Pt agrees to sponge bath, shower not completed due to no information as to if it can be completed with wound vac. Pt takes increased time to complete all tasks due to slow movement, hyperverbal about pain meds and pain. Pt completed toileting 2x's this session. Toilet transfer CGA for stand to sit, independent sit to stand. CGA in standing to manipulate clothing over wound vac tubing. Pt independent with toilet hygiene. Standing at sink, pt is independent with oral care. Set up with upper body dressing. Due to time constraints, pt required assistance to complete lower body dressing and footwear. After therapy, pt left in care of PT. All needs met. Therapy Code Descriptions/Definitions Functional [place] Measure: 0=Not Assessed/NA 4=Minimal Assistance 1=Total Assistance 5=Supervision or Setup 2=Maximal Assistance 6=Modified [place] 3=Moderate Assistance 7=Complete IndependenceSCALE: Activities may be completed with or without assistive devices. 1-Liiitwtqtn-qbcrgzz completes the activity by him/herself with no assistance from a helper. 5-Set-up or Clean-up Assistance-helper sets up or cleans up; patient completes activity. [place] assists only prior to or following the activity. 4-Supervision or Touching Assistance-helper provides verbal cues and/or touching/steadying and/or contact guard assistance as patient completes activity. Assistance may be provided throughout the activity or intermittently. 3-Partial/Moderate Assistance-helper does LESS THAN HALF the effort. [place] lifts, holds or supports trunk or limbs, but provides less than half the effort. 2-Substantial/Maximal Assistance-helper does MORE THAN HALF the effort. [place] lifts or holds trunk or limbs and provides more than half the effort. 6-Sepqzkzbw-qqhhwc does ALL the effort. Patient does none of the effort to complete the activity. Or, the assistance of 2 or more helpers is required for the patient to complete the activity. If activity was not attempted, code reason: 7-Patient Refused. 9-Not Applicable-not attempted and the patient did not perform the activity before the current illness, exacerbation or injury. 10-Not Attempted due to Environmental Limitations-(lack of equipment, weather restraints, etc.). 88-Not Attempted due to Medical Conditions or Safety Concerns. Eating (QC): 6 Oral Hygiene (QC): 6 Bathing Location: L Arm, R Arm, L Upper Leg, R Upper Leg, Chest, Abdomen, Buttocks, Perineal Area Shower/Bathe Self (QC): 3 (Min A after set up for sponge bath, pt completed all areas except lower legs and feet due to time constraints. Will give pt LH sponge.) Upper Body Dressing (QC): 5 Toileting Hygiene (QC): 4 Toilet Transfer (QC): 4 Education OT Patient Education: Purpose of tx/functional activities, Reviewed precautions, Rehab process Teaching Recipient: Patient Teaching Methods: Demonstration, Discussion Response to Teaching: Verbalize Understanding, Return Demonstration, Reinforcement Needed OT Short Term Goals Short Term Goals Time Frame: Jan 19, 2022 Eatin Oral hygiene: 4 Toileting hygiene: 3 Shower/bathe self: 3 Upper body dressin Lower body dressin Putting on/taking off footwear: 3 OT Bead Machine Operator Goals Bead Machine Operator Goals Time Frame: Jan 29, 2022 Acute change in mental status: 0 Inattention: 0 Disorganized thinkin Altered level of consciousness: 0 Eating (QC): 6 Oral Hygiene (QC): 5 Toileting Hygiene (QC): 6 Shower/Bathe Self (QC): 5 Upper Body Dressing (QC): 6 Lower Body Dressing (QC): 5 On/Off Footwear (QC): 6 Additional Goals: 1-Demonstrate ADL Tasks, 2-Verbalize Understanding, 3- ImproveStrength/Kaila 1=Demonstrate adherence to instructed precautions during ADL tasks. 2=Patient will verbalize/demonstrate understanding of assistive devices/modifications for ADL. 3=Patient will improve strength/tolerance for activity to enable patient to perform ADL's. OT Education/Plan Problem List/Assessment Assessment: Decreased Activ Tolerance, Decreased UE Strength, Impaired Self- Care Skills Discharge Recommendations Plan/Recommendations: Continue POC Treatment Plan/Plan of Care Patient would benefit from OT for education, treatment and training to promote independence in ADL's, mobility, safety and/or upper extremity function for ADL's. Plan of Care: ADL Retraining, Caregiver Training, Functional Mobility, Group Exercise/Act as Ind, UE Funct Exercise/Act Treatment Duration: Jan 29, 2022 Frequency: At least 5 of 7 days/Wk (IRF) Estimated Hrs Per Day: 1.5 hours per day (60-90 min/day) Agreement: Yes Rehab Potential: Guarded Time/GCodes Start Time: 08:30 Stop Time: 10:15 Total Time Billed (hr/min): 105 Billed Treatment Time 1 visit-ADL 7 (105 min) Co-treat with PT [id number], individual [id number] ZENA ARIAS Jan 09, 2022 10:29
--- NOTE | 2022-01-09 10:54 | Physical Therapy Daily Note ---
PT Daily Note-Current Subjective Patient in restroom pre tx, already working with OT, patient voices some complaints of pain, has discussion with doctor about it. Will be co-treating with OT for part of tx due to poor patient mobility, strength, endurance, sever debility and pain with activity, coordinate UE and LE during activity, safety and reduce risk of falls. Pain Section J - Health Conditions 1. Rarely or not at all 2. Occasionally 3. Frequently 4. Almost constantly 8. Unable to answer Pain Effect on Sleep: 8 Pain Interference with Therapy: 8 Pain Interference w/Day-to-Day: 8 Appearance Patient in bed post-tx with table, nurse call, phone, and all other needs met. Mental Status Patient Orientation: Person, Place, Situation R Hip Wound Vac Transfers SCALE: Activities may be completed with or without assistive devices. 9-Fqtmmbusel-dzmnxcl completes the activity by him/herself with no assistance from a helper. 5-Set-up or Clean-up Assistance-helper sets up or cleans up; patient completes activity. [place] assists only prior to or following the activity. 4-Supervision or Touching Assistance-helper provides verbal cues and/or touching/steadying and/or contact guard assistance as patient completes activity. Assistance may be provided throughout the activity or intermittently. 3-Partial/Moderate Assistance-helper does LESS THAN HALF the effort. [place] lifts, holds or supports trunk or limbs, but provides less than half the effort. 2-Substantial/Maximal Assistance-helper does MORE THAN HALF the effort. [place] lifts or holds trunk or limbs and provides more than half the effort. 9-Pecggxxxp-zcqdyc does ALL the effort. Patient does none of the effort to complete the activity. Or, the assistance of 2 or more helpers is required for the patient to complete the activity. If activity was not attempted, code reason: 7-Patient Refused. 9-Not Applicable-not attempted and the patient did not perform the activity before the current illness, exacerbation or injury. 10-Not Attempted due to Environmental Limitations-(lack of equipment, weather restraints, etc.). 88-Not Attempted due to Medical Conditions or Safety Concerns. Sit to Stand (QC): 4 Chair/Ieg-oc-Vzmvs Xfer(QC): 4 SBA Weight Bearing Right Lower Extremity: Right Weight Bearing/Tolerated Left Lower Extremity: Left Full Weight Bearing Gait Training Does the Patient Walk?: Yes Distance: 50ft, 100ft Walk 10 feet (QC): 4 Walk 50 ft with 2 Turns(QC): 4 Gait Persons Needed: 1 Gait Assistive Device: Walker Standard CGA, patient walked slow speed, decreased foot clearance, decreased step length but improved step through, severe kyphosis, moderate forward head. Exercises Standing: Hip Abduction, Hamstring curls, Heel/toe raises, Mini squats Standing Reps: 10 Hip Flexion 10 reps Treatments PT performed LE strengthening, Gait training, standing and positioning during toileting and dressing, OT performed toileting and dressing, ADL's at sink Assessment Current Status: Fair Progress Patient needed a 1 break during ambulation and 1 break during LE strengthening exercises PT Fpc Goals Fpc Goals PT Loop Sewer Goals Time Frame: Jan 30, 2022 Roll Left & Right (QC): 6 Sit to Lying (QC): 6 Lying-Sitting on Side/Bed(QC): 6 Sit to Stand (QC): 6 Chair/Ybm-bk-Uuxzg Xfer(QC): 6 Toilet Transfer (QC): 6 Car Transfer (QC): 6 Does the Patient Walk: Yes Walk 10 feet (QC): 6 Walk 50ft with 2 Turns (QC): 4 Walk 150 ft (QC): 4 Walking 10ft on Uneven Surface: 6 1 Step (curb) (QC): 4 4 Steps (QC): 4 12 Steps (QC): 4 Picking up an Object (QC): 4 Does the Pt use WC or Scooter?: Yes Wheel 50 feet with 2 turns (QC: 6 Wheel 150 feet: 6 PT Plan Problem List Problem List: Activity Tolerance, Functional Strength, Safety, Balance, Gait, Transfer, Bed Mobility, ROM Treatment/Plan Treatment Plan: Continue Plan of Care Treatment Plan: Bed Mobility, Education, Functional Activity Kaila, Functional Strength, Group Therapy, Gait, Safety, Therapeutic Exercise, Transfers Treatment Duration: Mar 21, 2022 Frequency: At least 5 of 7 days/Wk (IRF) Estimated Hrs Per Day: 1.5 hours per day Patient and/or Family Agrees t: Yes Safety Risks/Education Patient Education: Gait Training, Transfer Techniques, Correct Positioning, Safety Issues Teaching Recipient: Patient Teaching Methods: Demonstration, Discussion Response to Teaching: Reinforcement Needed Time/GCodes Time In: 1000 Time Out: 1100 Total Billed Treatment Time: 60 Total Billed Treatment 1 visit Gait 25min EX 35min co-treated with OT from [id number] SALVATORE GRAMAJO PT Jan 09, 2022 10:54
--- NOTE | 2022-01-09 13:22 | Physical Therapy Daily Note ---
PT Daily Note-Current Subjective Patient standing with FWW coming from the bathroom with nursing pre-tx. reports severe pain in R hip, agrees to PT. Pain Section J - Health Conditions 1. Rarely or not at all 2. Occasionally 3. Frequently 4. Almost constantly 8. Unable to answer Pain Effect on Sleep: 8 Pain Interference with Therapy: 8 Pain Interference w/Day-to-Day: 8 Appearance Patient in bed post-tx with tray, nurse call, phone, blanket, and all needs met. Mental Status Patient Orientation: Person, Place, Situation R Hip Wound Vac Transfers SCALE: Activities may be completed with or without assistive devices. 1-Bjpyhcancq-hrsksty completes the activity by him/herself with no assistance from a helper. 5-Set-up or Clean-up Assistance-helper sets up or cleans up; patient completes activity. [place] assists only prior to or following the activity. 4-Supervision or Touching Assistance-helper provides verbal cues and/or touchi ng/steadying and/or contact guard assistance as patient completes activity. Assistance may be provided throughout the activity or intermittently. 3-Partial/Moderate Assistance-helper does LESS THAN HALF the effort. [place] lifts, holds or supports trunk or limbs, but provides less than half the effort. 2-Substantial/Maximal Assistance-helper does MORE THAN HALF the effort. [place] lifts or holds trunk or limbs and provides more than half the effort. 4-Hrglltimo-cmdixa does ALL the effort. Patient does none of the effort to complete the activity. Or, the assistance of 2 or more helpers is required for the patient to complete the activity. If activity was not attempted, code reason: 7-Patient Refused. 9-Not Applicable-not attempted and the patient did not perform the activity before the current illness, exacerbation or injury. 10-Not Attempted due to Environmental Limitations-(lack of equipment, weather restraints, etc.). 88-Not Attempted due to Medical Conditions or Safety Concerns. Sit to Lying (QC): 3 Sit to Stand (QC): 4 Chair/Hlg-pi-Otqkq Xfer(QC): 4 SBA stand to sit, Min A lifting R leg into bed when lying down. Weight Bearing Right Lower Extremity: Right Weight Bearing/Tolerated Left Lower Extremity: Left Full Weight Bearing Gait Training Does the Patient Walk?: Yes Distance: 120ft x 2 Walk 10 feet (QC): 4 Walk 50 ft with 2 Turns(QC): 4 Gait Persons Needed: 1 Gait Assistive Device: FWW Decreased walking speed, decreased foot clearance, decreased step length. Treatments Gait Training Assessment Current Status: Fair Progress Patient exhibits slow mobility due to hip pain, has increase kyphosis and forward head making it difficulty to stand up straight. PT Correction Goals Correction Goals PT Kiln Remover Goals Time Frame: Jan 30, 2022 Roll Left & Right (QC): 6 Sit to Lying (QC): 6 Lying-Sitting on Side/Bed(QC): 6 Sit to Stand (QC): 6 Chair/Bwi-hc-Agrur Xfer(QC): 6 Toilet Transfer (QC): 6 Car Transfer (QC): 6 Does the Patient Walk: Yes Walk 10 feet (QC): 6 Walk 50ft with 2 Turns (QC): 4 Walk 150 ft (QC): 4 Walking 10ft on Uneven Surface: 6 1 Step (curb) (QC): 4 4 Steps (QC): 4 12 Steps (QC): 4 Picking up an Object (QC): 4 Does the Pt use WC or Scooter?: Yes Wheel 50 feet with 2 turns (QC: 6 Wheel 150 feet: 6 PT Plan Problem List Problem List: Activity Tolerance, Functional Strength, Safety, Balance, Gait, Transfer, Bed Mobility, ROM Treatment/Plan Treatment Plan: Continue Plan of Care Treatment Plan: Bed Mobility, Education, Functional Activity Kaila, Functional Strength, Group Therapy, Gait, Safety, Therapeutic Exercise, Transfers Treatment Duration: Mar 21, 2022 Frequency: At least 5 of 7 days/Wk (IRF) Estimated Hrs Per Day: 1.5 hours per day Patient and/or Family Agrees t: Yes Safety Risks/Education Patient Education: Gait Training, Transfer Techniques, Reviewed Precautions, Correct Positioning, Safety Issues Teaching Recipient: Patient Teaching Methods: Demonstration, Discussion Response to Teaching: Reinforcement Needed Time/GCodes Time In: 1250 Time Out: 1305 Total Billed Treatment Time: 15 Total Billed Treatment 1 visit Gait Training 15min SALVATORE GRAMAJO PT Jan 09, 2022 13:22
[2022-01-09] MEDS: LORATADINE (CLARITIN) 10 MG TAB PO SCH (17:39)
[2022-01-09 20:39] VITALS: BP 115/72
[2022-01-09] MEDS: traZODone 50 MG (DESYREL) TAB PO SCH (22:09)
[2022-01-09] MEDS: SUMAtriptan 50 MG (IMITREX) TAB PO PRN (22:19)
[2022-01-09] MEDS: DOCUSATE SODIUM 100 MG (COLACE) CAP PO SCH (22:20)
--- NOTE | 2022-01-10 05:51 | PM&R Progress Note ---
Subjective HPI/CC On Admission Date Seen by Provider: Jan 10, 2022 Time Seen by Provider: 12:30 Subjective/Events-last exam 01/10/2022: Patient doing pretty well Walking pretty well Voiding well Loose stools yesterday Pain is still an issue 01/09/2022: Patient medically stable Replacing potassium All she wants to talk about is her pain medication and the fact she takes more at home than she does here Family and other doctors who have treated her all want to minimize pain medication and I informed her we will do that Bowels are moving Checked meds and labs Review of Systems General: Fatigue, Malaise Objective Exam Vital Signs Vital Signs Date Time Temp Pulse Resp B/P (MAP) Pulse Ox O2 Delivery O2 Flow Rate FiO2 01/10/22 19:58 36.7 75 16 121/72 (88) 96 Room Air Capillary Refill : General Appearance: No Apparent Distress, WD/WN, Chronically ill, Thin, Other (Frail) HEENT: PERRL/EOMI, Normal ENT Inspection, Pharynx Normal Neck: Full Range of Motion, Normal Inspection, Non Tender, Supple, Carotid Bruit Respiratory: Chest Non Tender, Lungs Clear, Normal Breath Sounds, No Accessory Muscle Use, No Respiratory Distress Cardiovascular: Regular Rate, Rhythm, No Edema, No Gallop, No JVD, No Murmur, Normal Peripheral Pulses Gastrointestinal: Normal Bowel Sounds, No Organomegaly, No Pulsatile Mass, Non Tender, Soft Back: Normal Inspection, No CVA Tenderness, No Vertebral Tenderness Extremity: Normal Capillary Refill, Normal Inspection, Normal Range of Motion (Except for right leg), Non Tender, No Calf Tenderness, No Pedal Edema Neurologic/Psychiatric: Alert, Oriented x3, Normal Mood/Affect, 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 FIM Transfers Therapy Code Descriptions/Definitions Functional [place] Measure: 0=Not Assessed/NA 4=Minimal Assistance 1=Total Assistance 5=Supervision or Setup 2=Maximal Assistance 6=Modified [place] 3=Moderate Assistance 7=Complete IndependenceSCALE: Activities may be completed with or without assistive devices. 4-Azwghxhakg-kvworvy completes the activity by him/herself with no assistance from a helper. 5-Set-up or Clean-up Assistance-helper sets up or cleans up; patient completes activity. [place] assists only prior to or following the activity. 4-Supervision or Touching Assistance-helper provides verbal cues and/or touching/steadying and/or contact guard assistance as patient completes activity. Assistance may be provided throughout the activity or intermittently. 3-Partial/Moderate Assistance-helper does LESS THAN HALF the effort. [place] lifts, holds or supports trunk or limbs, but provides less than half the effort. 2-Substantial/Maximal Assistance-helper does MORE THAN HALF the effort. [place] lifts or holds trunk or limbs and provides more than half the effort. 9-Tanmfodzz-cvwdvi does ALL the effort. Patient does none of the effort to complete the activity. Or, the assistance of 2 or more helpers is required for the patient to complete the activity. If activity was not attempted, code reason: 7-Patient Refused. 9-Not Applicable-not attempted and the patient did not perform the activity before the current illness, exacerbation or injury. 10-Not Attempted due to Environmental Limitations-(lack of equipment, weather restraints, etc.). 88-Not Attempted due to Medical Conditions or Safety Concerns. Roll Left to Right (QC): 3 Sit to Lying (QC): 3 Sit to Stand (QC): 4 Chair/Fck-kw-Drhpj Xfer(QC): 4 Car Transfer (QC): 2 Gait Training Does the Patient Walk?: Yes Distance: 120ft x 2 Walk 10 feet (QC): 4 Walk 50 ft with 2 Turns(QC): 4 Walk 150 ft (QC): 88 Walking 10ft/uneven surface-QC: 88 Gait Persons Needed: 1 Gait Assistive Device: FWW Wheelchair Training Does the Pt Use a Wheelchair?: Yes Distance: 20 Wheel 50 ft with 2 turns (QC): 3 Wheel 150 ft (QC): 88 Type of Wheelchair: Manual Stair Training Stair Training: Handrails/: uses walker #of Steps: 1 1 Step (curb) (QC): 3 4 Steps (QC): 88 12 Steps (QC): 88 Stairs: Pattern: Step to Balance Picking up an Object (QC): 4 (CGA using a room service clerk) ADL-Treatment Eating (QC): 6 Oral Hygiene (QC): 6 Bathing Location: L Arm, R Arm, L Upper Leg, R Upper Leg, Chest, Abdomen, Buttocks, Perineal Area Shower/Bathe Self (QC): 3 (Min A after set up for sponge bath, pt completed all areas except lower legs and feet due to time constraints. Will give pt LH sponge.) Upper Body Dressing (QC): 5 Lower Body Dressing (QC): 3 On/Off Footwear (QC): 1 Toileting Hygiene (QC): 4 Toilet Transfer (QC): 4 Assessment/Plan Assessment and Plan Assess & Plan/Chief Complaint Assessment: Right hip replacement by Dr. Singer uncomplicated Slow recovery Chronic debility Chronic pain syndrome Narcotic and benzodiazepine dependence Severe scoliosis in need of extensive surgery Fibromyalgia Severe hypokalemia Plan: Supportive care Monitor closely Pain control but minimize medication Aggressive PT and OT Monitor potassium 01/09/2022: Minimize pain meds Replace potassium 01/10/2022: Supplemental potassium (1) Generalized weakness Status: Acute (2) S/P hip replacement ANIKET GA DO Jan 10, 2022 05:51
[2022-01-10] MEDS: ACETAMINOPHEN 325 MG TABLET PO SCH ×3 (05:57→22:11)
[2022-01-10 07:28] VITALS: BP 103/62
[2022-01-10] MEDS: MULTIVIT W/MINERALS TAB (THERAGRAN M) PO SCH (07:41)
[2022-01-10] MEDS: toPIRamate 100 MG (TOPAMAX) TAB PO SCH ×2 (09:01→21:43)
[2022-01-10] MEDS: MONTELUKAST 10 MG (SINGULAIR) TAB PO SCH (09:01)
[2022-01-10] MEDS: PANTOPRAZOLE 40 MG (PROTONIX) TAB PO SCH (09:01)
[2022-01-10] MEDS: GABAPENTIN 600 MG (NEURONTIN) TAB PO SCH ×4 (09:01→21:42)
[2022-01-10] MEDS: KCL 20 MEQ TAB (K-DUR) PO SCH ×3 (09:01→17:09)
[2022-01-10] MEDS: VITAMIN D3 25 MCG (1,000 UNITS) TABLET PO SCH (09:01)
[2022-01-10] MEDS: polyethylene glycoL POWDER 17 GM (MIRALAX) PACK PO SCH ×2 (09:12→21:44)
[2022-01-10] MEDS: SENNA W/DOCUSATE (SENOKOT S) TABLET PO SCH ×2 (09:12→21:44)
--- NOTE | 2022-01-10 10:03 | Physical Therapy Daily Note ---
PT Daily Note-Current Subjective Pt sitting up in bed upon arrival. Pt reports needing to use BR. Pt agrees to PT. Pt continues to be verbal about not getting enough pain med. as pt gets at home. Pt reports telling Dr Roberto but not receiving anymore pain meds. Pt has history of drug abuse. Pain Location: Right Location Body Site: Hip Pain Description: Throbbing, Tightness Comment: Reported but not rated Section J - Health Conditions 1. Rarely or not at all 2. Occasionally 3. Frequently 4. Almost constantly 8. Unable to answer Pain Effect on Sleep: 8 Pain Interference with Therapy: 8 Pain Interference w/Day-to-Day: 8 Mental Status Patient Orientation: Person, Place Transfers SCALE: Activities may be completed with or without assistive devices. 8-Nkvvbpduss-jybgghv completes the activity by him/herself with no assistance from a helper. 5-Set-up or Clean-up Assistance-helper sets up or cleans up; patient completes activity. [place] assists only prior to or following the activity. 4-Supervision or Touching Assistance-helper provides verbal cues and/or touching/steadying and/or contact guard assistance as patient completes activity. Assistance may be provided throughout the activity or intermittently. 3-Partial/Moderate Assistance-helper does LESS THAN HALF the effort. [place] lifts, holds or supports trunk or limbs, but provides less than half the effort. 2-Substantial/Maximal Assistance-helper does MORE THAN HALF the effort. [place] lifts or holds trunk or limbs and provides more than half the effort. 4-Itqsjxdgu-bpuaki does ALL the effort. Patient does none of the effort to complete the activity. Or, the assistance of 2 or more helpers is required for the patient to complete the activity. If activity was not attempted, code reason: 7-Patient Refused. 9-Not Applicable-not attempted and the patient did not perform the activity before the current illness, exacerbation or injury. 10-Not Attempted due to Environmental Limitations-(lack of equipment, weather restraints, etc.). 88-Not Attempted due to Medical Conditions or Safety Concerns. Sit to Stand (QC): 4 Toilet Transfer (QC): 4 Weight Bearing Right Lower Extremity: Right Weight Bearing/Tolerated Left Lower Extremity: Left Full Weight Bearing Gait Training Does the Patient Walk?: Yes Distance: 20', 10' Walk 10 feet (QC): 4 Gait Persons Needed: 1 Gait Assistive Device: FWW Treatments TF from Supine to EOB w/VC to hook good leg under bad one to aid in TF. TF to standing and amb. to BR. After toileting, pt completes pericare. Pt continues to be hyperverbal about pain meds and not getting enough. VC for maintaining Hip Precautions. Pt returns to recliner as voices R hip is throbbing. Positioned to comfort and rest at end of tx. All needs met, call light in hand. Assessment Current Status: Fair Progress VC for safety and Hip Precautions. Pt focused on pain meds throughout tx, no redirection possible. PT Nursing Home Goals Nursing Home Goals PT Nursing Home Goals Time Frame: Jan 30, 2022 Roll Left & Right (QC): 6 Sit to Lying (QC): 6 Lying-Sitting on Side/Bed(QC): 6 Sit to Stand (QC): 6 Chair/Bkj-zp-Tjzdk Xfer(QC): 6 Toilet Transfer (QC): 6 Car Transfer (QC): 6 Does the Patient Walk: Yes Walk 10 feet (QC): 6 Walk 50ft with 2 Turns (QC): 4 Walk 150 ft (QC): 4 Walking 10ft on Uneven Surface: 6 1 Step (curb) (QC): 4 4 Steps (QC): 4 12 Steps (QC): 4 Picking up an Object (QC): 4 Does the Pt use WC or Scooter?: Yes Wheel 50 feet with 2 turns (QC: 6 Wheel 150 feet: 6 PT Plan Problem List Problem List: Activity Tolerance, Functional Strength, Safety, Transfer Treatment/Plan Treatment Plan: Continue Plan of Care Treatment Plan: Bed Mobility, Education, Functional Activity Kaila, Functional Strength, Group Therapy, Gait, Safety, Therapeutic Exercise, Transfers Treatment Duration: Mar 21, 2022 Frequency: At least 5 of 7 days/Wk (IRF) Estimated Hrs Per Day: 1.5 hours per day Patient and/or Family Agrees t: Yes Safety Risks/Education Patient Education: Gait Training, Transfer Techniques, Reviewed Precautions, Correct Positioning, Safety Issues Teaching Recipient: Patient Teaching Methods: Discussion Response to Teaching: Reinforcement Needed Time/GCodes Time In: 815 Time Out: 845 Total Billed Treatment Time: 30 Total Billed Treatment 1, FA x2 (30m) [place]ON [place] PTA Jan 10, 2022 10:03
[2022-01-10] MEDS: LORATADINE (CLARITIN) 10 MG TAB PO SCH (17:09)
[2022-01-10 19:58] VITALS: BP 121/72
[2022-01-10] MEDS: PROMETHAZINE 25 MG (PHENERGAN) TAB PO PRN (21:41)
[2022-01-10] MEDS: SUMAtriptan 50 MG (IMITREX) TAB PO PRN (21:42)
[2022-01-10] MEDS: traZODone 50 MG (DESYREL) TAB PO SCH (21:43)
[2022-01-10] MEDS: ZOLPIDEM 5 MG (AMBIEN) TAB PO PRN (21:43)
[2022-01-10] MEDS: DOCUSATE SODIUM 100 MG (COLACE) CAP PO SCH (21:44)
--- NOTE | 2022-01-11 05:39 | PM&R Progress Note ---
Subjective HPI/CC On Admission Date Seen by Provider: Jan 11, 2022 Time Seen by Provider: 13:00 Subjective/Events-last exam 01/11/2022: Patient about the same Complaints about chronic pain Reports she is getting headaches and migraines due to not enough pain medicine and patient appears to be in no distress at all 01/10/2022: Patient doing pretty well Walking pretty well Voiding well Loose stools yesterday Pain is still an issue 01/09/2022: Patient medically stable Replacing potassium All she wants to talk about is her pain medication and the fact she takes more at home than she does here Family and other doctors who have treated her all want to minimize pain medicat ion and I informed her we will do that Bowels are moving Checked meds and labs Review of Systems General: Fatigue, Malaise Musculoskeletal: leg pain, foot pain Objective Exam Vital Signs Vital Signs Date Time Temp Pulse Resp B/P (MAP) Pulse Ox O2 Delivery O2 Flow Rate FiO2 01/11/22 09:00 Room Air 01/11/22 08:00 36.2 75 18 103/55 (71 94 Capillary Refill : General Appearance: No Apparent Distress, WD/WN, Chronically ill, Thin, Other (Frail) HEENT: PERRL/EOMI, Normal ENT Inspection, Pharynx Normal Neck: Full Range of Motion, Normal Inspection, Non Tender, Supple, Carotid Bruit Respiratory: Chest Non Tender, Lungs Clear, Normal Breath Sounds, No Accessory Muscle Use, No Respiratory Distress Cardiovascular: Regular Rate, Rhythm, No Edema, No Gallop, No JVD, No Murmur, Normal Peripheral Pulses Gastrointestinal: Normal Bowel Sounds, No Organomegaly, No Pulsatile Mass, Non Tender, Soft Back: Normal Inspection, No CVA Tenderness, No Vertebral Tenderness Extremity: Normal Capillary Refill, Normal Inspection, Normal Range of Motion (Except for right leg), Non Tender, No Calf Tenderness, No Pedal Edema Neurologic/Psychiatric: Alert, Oriented x3, Normal Mood/Affect, 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 FIM Transfers Therapy Code Descriptions/Definitions Functional [place] Measure: 0=Not Assessed/NA 4=Minimal Assistance 1=Total Assistance 5=Supervision or Setup 2=Maximal Assistance 6=Modified [place] 3=Moderate Assistance 7=Complete IndependenceSCALE: Activities may be completed with or without assistive devices. 4-Wucfadsnlf-kcwtmsq completes the activity by him/herself with no assistance from a helper. 5-Set-up or Clean-up Assistance-helper sets up or cleans up; patient completes activity. [place] assists only prior to or following the activity. 4-Supervision or Touching Assistance-helper provides verbal cues and/or touching/steadying and/or contact guard assistance as patient completes activity. Assistance may be provided throughout the activity or intermittently. 3-Partial/Moderate Assistance-helper does LESS THAN HALF the effort. [place] lifts, holds or supports trunk or limbs, but provides less than half the effort. 2-Substantial/Maximal Assistance-helper does MORE THAN HALF the effort. [place] lifts or holds trunk or limbs and provides more than half the effort. 4-Iacibmgxv-gbnjmq does ALL the effort. Patient does none of the effort to complete the activity. Or, the assistance of 2 or more helpers is required for the patient to complete the activity. If activity was not attempted, code reason: 7-Patient Refused. 9-Not Applicable-not attempted and the patient did not perform the activity before the current illness, exacerbation or injury. 10-Not Attempted due to Environmental Limitations-(lack of equipment, weather restraints, etc.). 88-Not Attempted due to Medical Conditions or Safety Concerns. Roll Left to Right (QC): 3 Sit to Lying (QC): 3 Sit to Stand (QC): 4 Chair/Zvn-bs-Akhjj Xfer(QC): 4 Car Transfer (QC): 2 Gait Training Does the Patient Walk?: Yes Distance: 20', 10' Walk 10 feet (QC): 4 Walk 50 ft with 2 Turns(QC): 4 Walk 150 ft (QC): 88 Walking 10ft/uneven surface-QC: 88 Gait Persons Needed: 1 Gait Assistive Device: FWW Wheelchair Training Does the Pt Use a Wheelchair?: Yes Distance: 20 Wheel 50 ft with 2 turns (QC): 3 Wheel 150 ft (QC): 88 Type of Wheelchair: Manual Stair Training Stair Training: Handrails/: uses walker #of Steps: 1 1 Step (curb) (QC): 3 4 Steps (QC): 88 12 Steps (QC): 88 Stairs: Pattern: Step to Balance Picking up an Object (QC): 4 (CGA using a support manager) ADL-Treatment Eating (QC): 6 Oral Hygiene (QC): 6 Bathing Location: L Arm, R Arm, L Upper Leg, R Upper Leg, Chest, Abdomen, Buttocks, Perineal Area Shower/Bathe Self (QC): 3 (Min A after set up for sponge bath, pt completed all areas except lower legs and feet due to time constraints. Will give pt LH sponge.) Upper Body Dressing (QC): 5 Lower Body Dressing (QC): 3 On/Off Footwear (QC): 1 Toileting Hygiene (QC): 4 Toilet Transfer (QC): 4 Assessment/Plan Assessment and Plan Assess & Plan/Chief Complaint Assessment: Right hip replacement by Dr. Singer uncomplicated Slow recovery Chronic debility Chronic pain syndrome Narcotic and benzodiazepine dependence Severe scoliosis in need of extensive surgery Fibromyalgia Severe hypokalemia Plan: Supportive care Monitor closely Pain control but minimize medication Aggressive PT and OT Monitor potassium 01/09/2022: Minimize pain meds Replace potassium 01/10/2022: Supplemental potassium 01/11/2022: Supportive care (1) Generalized weakness Status: Acute (2) S/P hip replacement ANIKET GA DO Jan 11, 2022 05:39
[2022-01-11] MEDS: ACETAMINOPHEN 325 MG TABLET PO SCH ×3 (06:05→21:55)
[2022-01-11] MEDS: MULTIVIT W/MINERALS TAB (THERAGRAN M) PO SCH (07:32)
[2022-01-11 08:00] VITALS: BP 103/55
[2022-01-11] MEDS: KCL 20 MEQ TAB (K-DUR) PO SCH ×3 (09:10→18:48)
[2022-01-11] MEDS: SENNA W/DOCUSATE (SENOKOT S) TABLET PO SCH ×2 (09:10→20:15)
[2022-01-11] MEDS: MONTELUKAST 10 MG (SINGULAIR) TAB PO SCH (09:10)
[2022-01-11] MEDS: VITAMIN D3 25 MCG (1,000 UNITS) TABLET PO SCH (09:10)
[2022-01-11] MEDS: toPIRamate 100 MG (TOPAMAX) TAB PO SCH ×2 (09:10→20:14)
[2022-01-11] MEDS: GABAPENTIN 600 MG (NEURONTIN) TAB PO SCH ×4 (09:10→21:54)
[2022-01-11] MEDS: PANTOPRAZOLE 40 MG (PROTONIX) TAB PO SCH (09:10)
[2022-01-11] MEDS: polyethylene glycoL POWDER 17 GM (MIRALAX) PACK PO SCH ×2 (09:17→20:15)
[2022-01-11] MEDS: SUMAtriptan 50 MG (IMITREX) TAB PO PRN ×2 (13:40→20:14)
[2022-01-11] MEDS: PROMETHAZINE 25 MG (PHENERGAN) TAB PO PRN (16:22)
[2022-01-11] MEDS: LORATADINE (CLARITIN) 10 MG TAB PO SCH (18:48)
[2022-01-11] MEDS: clonazePAM 0.5 MG (KlonoPIN) TAB PO PRN (20:08)
[2022-01-11] MEDS: DOCUSATE SODIUM 100 MG (COLACE) CAP PO SCH (20:15)
[2022-01-11 20:50] VITALS: BP 123/70
[2022-01-11] MEDS: traZODone 50 MG (DESYREL) TAB PO SCH (21:53)
[2022-01-11] MEDS: ZOLPIDEM 5 MG (AMBIEN) TAB PO PRN (21:54)
[2022-01-12] MEDS: clonazePAM 0.5 MG (KlonoPIN) TAB PO PRN (05:30)
[2022-01-12] MEDS: ACETAMINOPHEN 325 MG TABLET PO SCH ×2 (05:52→13:21)
--- NOTE | 2022-01-12 06:50 | PM&R Progress Note ---
Subjective HPI/CC On Admission Date Seen by Provider: Jan 12, 2022 Time Seen by Provider: 09:00 Subjective/Events-last exam 01/12/2022: 01/11/2022: Patient about the same Complaints about chronic pain Reports she is getting headaches and migraines due to not enough pain medicine and patient appears to be in no distress at all 01/10/2022: Patient doing pretty well Walking pretty well Voiding well Loose stools yesterday Pain is still an issue 01/09/2022: Patient medically stable Replacing potassium All she wants to talk about is her pain medication and the fact she takes more at home than she does here Family and other doctors who have treated her all want to minimize pain medication and I informed her we will do that Bowels are moving Checked meds and labs Review of Systems General: Fatigue, Malaise Musculoskeletal: neck pain, shoulder pain, arm pain, back pain, hand pain, leg pain Objective Exam Vital Signs Vital Signs Date Time Temp Pulse Resp B/P (MAP) Pulse Ox O2 Delivery O2 Flow Rate FiO2 01/12/22 09:00 Room Air 01/12/22 07:43 36.8 87 16 101/51 (68) 91 Capillary Refill : General Appearance: No Apparent Distress, WD/WN, Chronically ill, Thin, Other (Frail) HEENT: PERRL/EOMI, Normal ENT Inspection, Pharynx Normal Neck: Full Range of Motion, Normal Inspection, Non Tender, Supple, Carotid Bruit Respiratory: Chest Non Tender, Lungs Clear, Normal Breath Sounds, No Accessory Muscle Use, No Respiratory Distress Cardiovascular: Regular Rate, Rhythm, No Edema, No Gallop, No JVD, No Murmur, Normal Peripheral Pulses Gastrointestinal: Normal Bowel Sounds, No Organomegaly, No Pulsatile Mass, Non Tender, Soft Back: Normal Inspection, No CVA Tenderness, No Vertebral Tenderness Extremity: Normal Capillary Refill, Normal Inspection, Normal Range of Motion (Except for right leg), Non Tender, No Calf Tenderness, No Pedal Edema Neurologic/Psychiatric: Alert, Oriented x3, Normal Mood/Affect, manager 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 FIM Transfers Therapy Code Descriptions/Definitions Functional [place] Measure: 0=Not Assessed/NA 4=Minimal Assistance 1=Total Assistance 5=Supervision or Setup 2=Maximal Assistance 6=Modified [place] 3=Moderate Assistance 7=Complete IndependenceSCALE: Activities may be completed with or without assistive devices. 2-Ryhrvokjyk-vvykxlp completes the activity by him/herself with no assistance from a helper. 5-Set-up or Clean-up Assistance-helper sets up or cleans up; patient completes activity. [place] assists only prior to or following the activity. 4-Supervision or Touching Assistance-helper provides verbal cues and/or touching/steadying and/or contact guard assistance as patient completes activity. Assistance may be provided throughout the activity or intermittently. 3-Partial/Moderate Assistance-helper does LESS THAN HALF the effort. [place] lifts, holds or supports trunk or limbs, but provides less than half the effort. 2-Substantial/Maximal Assistance-helper does MORE THAN HALF the effort. [place] lifts or holds trunk or limbs and provides more than half the effort. 5-Ebbtavafc-accztw does ALL the effort. Patient does none of the effort to complete the activity. Or, the assistance of 2 or more helpers is required for the patient to complete the activity. If activity was not attempted, code reason: 7-Patient Refused. 9-Not Applicable-not attempted and the patient did not perform the activity before the current illness, exacerbation or injury. 10-Not Attempted due to Environmental Limitations-(lack of equipment, weather restraints, etc.). 88-Not Attempted due to Medical Conditions or Safety Concerns. Roll Left to Right (QC): 3 Sit to Lying (QC): 3 Sit to Stand (QC): 4 Chair/Hav-cv-Lesso Xfer(QC): 4 Car Transfer (QC): 2 Gait Training Does the Patient Walk?: Yes Distance: 20', 10' Walk 10 feet (QC): 4 Walk 50 ft with 2 Turns(QC): 4 Walk 150 ft (QC): 88 Walking 10ft/uneven surface-QC: 88 Gait Persons Needed: 1 Gait Assistive Device: FWW Wheelchair Training Does the Pt Use a Wheelchair?: Yes Distance: 20 Wheel 50 ft with 2 turns (QC): 3 Wheel 150 ft (QC): 88 Type of Wheelchair: Manual Stair Training Stair Training: Handrails/: uses walker #of Steps: 1 1 Step (curb) (QC): 3 4 Steps (QC): 88 12 Steps (QC): 88 Stairs: Pattern: Step to Balance Picking up an Object (QC): 4 (CGA using a web methods developer) ADL-Treatment Eating (QC): 6 Oral Hygiene (QC): 6 Bathing Location: L Arm, R Arm, L Upper Leg, R Upper Leg, Chest, Abdomen, Buttocks, Perineal Area Shower/Bathe Self (QC): 3 (Min A after set up for sponge bath, pt completed all areas except lower legs and feet due to time constraints. Will give pt LH sponge.) Upper Body Dressing (QC): 5 Lower Body Dressing (QC): 3 On/Off Footwear (QC): 1 Toileting Hygiene (QC): 4 Toilet Transfer (QC): 4 Assessment/Plan Assessment and Plan Assess & Plan/Chief Complaint Assessment: Right hip replacement by Dr. Singer uncomplicated Slow recovery Chronic debility Chronic pain syndrome Narcotic and benzodiazepine dependence Severe scoliosis in need of extensive surgery Fibromyalgia Severe hypokalemia Plan: Supportive care Monitor closely Pain control but minimize medication Aggressive PT and OT Monitor potassium 01/09/2022: Minimize pain meds Replace potassium 01/10/2022: Supplemental potassium 01/11/2022: Supportive care 01/12/2022: (1) Generalized weakness Status: Acute (2) S/P hip replacement ANIKET GA DO Jan 12, 2022 06:50
[2022-01-12 07:08] LABS: BASOPHILS # (AUTO) 0.1 10^3/uL (0.0-0.1); BASOPHILS % (AUTO) 1 % (0-10); EOSINOPHILS # (AUTO) 0.5 10^3/uL (0.0-0.3); EOSINOPHILS % (AUTO) 7 % (0-10); HEMATOCRIT 33 % (35-52); HEMOGLOBIN 10.7 g/dL (11.5-16.0); LYMPHOCYTES # (AUTO) 1.8 10^3/uL (1.0-4.0); LYMPHOCYTES % (AUTO) 25 % (12-44); MEAN CORPUSCULAR HEMOGLOBIN 33 pg (25-34); MEAN CORPUSCULAR HGB CONC 32 g/dL (32-36); MEAN CORPUSCULAR VOLUME 103 fL (80-99); MEAN PLATELET VOLUME 9.1 fL (9.0-12.2); MONOCYTES # (AUTO) 0.4 10^3/uL (0.0-1.0); MONOCYTES % (AUTO) 5 % (0-12); NEUTROPHILS # (AUTO) 4.4 10^3/uL (1.8-7.8); NEUTROPHILS % (AUTO) 61 % (42-75); PLATELET COUNT 397 10^3/uL (130-400); WHITE BLOOD COUNT 7.3 10^3/uL (4.3-11.0)
[2022-01-12] MEDS: MULTIVIT W/MINERALS TAB (THERAGRAN M) PO SCH (07:25)
[2022-01-12 07:26] LABS: ALBUMIN 3.2 GM/DL (3.2-4.5); POTASSIUM 4.4 MMOL/L (3.6-5.0)
[2022-01-12 07:27] LABS: CALCIUM 8.7 MG/DL (8.5-10.1)
[2022-01-12 07:30] LABS: BILIRUBIN,TOTAL 0.5 MG/DL (0.1-1.0)
[2022-01-12 07:32] LABS: CREATININE SERUM 0.83 MG/DL (0.60-1.30)
[2022-01-12 07:43] VITALS: BP 101/51
[2022-01-12] MEDS: MONTELUKAST 10 MG (SINGULAIR) TAB PO SCH (09:32)
[2022-01-12] MEDS: VITAMIN D3 25 MCG (1,000 UNITS) TABLET PO SCH (09:32)
[2022-01-12] MEDS: PROMETHAZINE 25 MG (PHENERGAN) TAB PO PRN (09:32)
[2022-01-12] MEDS: toPIRamate 100 MG (TOPAMAX) TAB PO SCH (09:32)
[2022-01-12] MEDS: PANTOPRAZOLE 40 MG (PROTONIX) TAB PO SCH (09:32)
[2022-01-12] MEDS: KCL 20 MEQ TAB (K-DUR) PO SCH (09:32)
[2022-01-12] MEDS: GABAPENTIN 600 MG (NEURONTIN) TAB PO SCH ×2 (09:32→13:21)
[2022-01-12] MEDS: SENNA W/DOCUSATE (SENOKOT S) TABLET PO SCH (09:38)
[2022-01-12] MEDS: polyethylene glycoL POWDER 17 GM (MIRALAX) PACK PO SCH (09:38)
[2022-01-12] MEDS ORDERED: OXC5T PO (10:13)
--- NOTE | 2022-01-12 10:17 | Discharge Summary ---
Diagnosis/Chief Complaint Date of Admission Jan 08, 2022 at 10:27 Date of Discharge Discharge Date: Jan 12, 2022 Discharge Diagnosis Assessment: Right hip replacement by Dr. Singer uncomplicated Slow recovery Chronic debility Chronic pain syndrome Narcotic and benzodiazepine dependence Severe scoliosis in need of extensive surgery Fibromyalgia Severe hypokalemia Plan: Supportive care Monitor closely Pain control but minimize medication Aggressive PT and OT Monitor potassium 01/09/2022: Minimize pain meds Replace potassium 01/10/2022: Supplemental potassium 01/11/2022: Supportive care (1) Generalized weakness Status: Acute (2) S/P hip replacement Discharge Summary Discharge Physical Examination Allergies: Coded Allergies: Penicillins (Verified Allergy, Unknown, 03/09/19) doxycycline (Verified Allergy, Unknown, RASH, HIVES, ITCHING, 10/10/20) escitalopram (Verified Allergy, Unknown, 01/08/22) MAKES HER HAIR FALL OUT morphine (Verified Allergy, Unknown, 01/08/22) pt states that she has broke out in a rash when she previously took Morphine Vitals & I&Os Vital Signs Date Time Temp Pulse Resp B/P (MAP) Pulse Ox O2 Delivery O2 Flow Rate FiO2 01/12/22 16:20 36.6 92 16 110/75 95 Room Air General Appearance: Alert, Oriented X3, Cooperative Respiratory: Clear to Auscultation Cardiovascular: Regular Rate Psych/Mental Status: Mental Status NL Hospital Course Was the Problem List Reviewed?: Yes Short hospital course after she was admitted from [facility] after hip replacement and slow recovery. Overmedication was an issue prior to admit and family and PCP made it clear to limit pain meds so that was maintained which caused multiple complaints from the patient. She takes an enormous amount of controlled meds at home so she was DC in improved condition after she was able to regain function to live independently. Labs (last 24 hrs) Laboratory Tests 01/09/22 05:26: White Blood Count 8.0, Red Blood Count 3.18L, Hemoglobin 10.9L, Hematocrit 32L, Mean Corpuscular Volume 101H, Mean Corpuscular Hemoglobin 34, Mean Corpuscular Hemoglobin Concent 34, Red Cell Distribution Width 12.5, Platelet Count 256, Mean Platelet Volume 9.5, Immature Granulocyte % (Auto) 1, Neutrophils (%) (Auto) 68, Lymphocytes (%) (Auto) 23, Monocytes (%) (Auto) 5, Eosinophils (%) (Auto) 3, Basophils (%) (Auto) 1, Neutrophils # (Auto) 5.4, Lymphocytes # (Auto) 1.8, Monocytes # (Auto) 0.4, Eosinophils # (Auto) 0.3, Basophils # (Auto) 0.1, Immature Granulocyte # (Auto) 0.0, Sodium Level 142, Potassium Level 3.0L, Chloride Level 113H, Carbon Dioxide Level 21, Anion Gap 8, Blood Urea Nitrogen 8, Creatinine 0.73, Estimat Glomerular Filtration Rate 90, BUN/Creatinine Ratio 11, Glucose Level 83, Calcium Level 8.4L, Corrected Calcium 9.2, Magnesium Level 2.1, Iron Level 24L, Total Bilirubin 0.4, Aspartate Amino Transf (AST/SGOT) 32, Alanine Aminotransferase (ALT/SGPT) 13, Alkaline Phosphatase 83, Total Protein 5.6L, Albumin 3.0L, Vitamin B12 Level 507 01/12/22 07:03: White Blood Count 7.3, Red Blood Count 3.21L, Hemoglobin 10.7L, Hematocrit 33L, Mean Corpuscular Volume 103H, Mean Corpuscular Hemoglobin 33, Mean Corpuscular Hemoglobin Concent 32, Red Cell Distribution Width 12.5, Platelet Count 397, Mean Platelet Volume 9.1, Immature Granulocyte % (Auto) 1, Neutrophils (%) (Auto) 61, Lymphocytes (%) (Auto) 25, Monocytes (%) (Auto) 5, Eosinophils (%) (Auto) 7, Basophils (%) (Auto) 1, Neutrophils # (Auto) 4.4, Lymphocytes # (Auto) 1.8, Monocytes # (Auto) 0.4, Eosinophils # (Auto) 0.5H, Basophils # (Auto) 0.1, Immature Granulocyte # (Auto) 0.1, Sodium Level 140, Potassium Level 4.4, Chlo ride Level 115H, Carbon Dioxide Level 17L, Anion Gap 8, Blood Urea Nitrogen 11, Creatinine 0.83, Estimat Glomerular Filtration Rate 77, BUN/Creatinine Ratio 13, Glucose Level 92, Calcium Level 8.7, Corrected Calcium 9.3, Total Bilirubin 0.5, Aspartate Amino Transf (AST/SGOT) 22, Alanine Aminotransferase (ALT/SGPT) 12, Alkaline Phosphatase 77, Total Protein 6.0L, Albumin 3.2 Pending Labs Laboratory Tests 01/09/22 05:26: White Blood Count 8.0, Red Blood Count 3.18, Hemoglobin 10.9, Hematocrit 32, Mean Corpuscular Volume 101, Mean Corpuscular Hemoglobin 34, Mean Corpuscular Hemoglobin Concent 34, Red Cell Distribution Width 12.5, Platelet Count 256, Mean Platelet Volume 9.5, Immature Granulocyte % (Auto) 1, Neutrophils (%) (Auto) 68, Lymphocytes (%) (Auto) 23, Monocytes (%) (Auto) 5, Eosinophils (%) (Auto) 3, Basophils (%) (Auto) 1, Neutrophils # (Auto) 5.4, Lymphocytes # (Auto) 1.8, Monocytes # (Auto) 0.4, Eosinophils # (Auto) 0.3, Basophils # (Auto) 0.1, Immature Granulocyte # (Auto) 0.0, Sodium Level 142, Potassium Level 3.0, Chloride Level 113, Carbon Dioxide Level 21, Anion Gap 8, Blood Urea Nitrogen 8, Creatinine 0.73, Estimat Glomerular Filtration Rate 90, BUN/Creatinine Ratio 11, Glucose Level 83, Calcium Level 8.4, Corrected Calcium 9.2, Magnesium Level 2.1, Iron Level 24, Total Bilirubin 0.4, Aspartate Amino Transf (AST/SGOT) 32, Alanine Aminotransferase (ALT/SGPT) 13, Alkaline Phosphatase 83, Total Protein 5.6, Albumin 3.0, Vitamin B12 Level 507 01/12/22 07:03: White Blood Count 7.3, Red Blood Count 3.21, Hemoglobin 10.7, Hematocrit 33, Mean Corpuscular Volume 103, Mean Corpuscular Hemoglobin 33, Mean Corpuscular Hemoglobin Concent 32, Red Cell Distribution Width 12.5, Platelet Count 397, Mean Platelet Volume 9.1, Immature Granulocyte % (Auto) 1, Neutrophils (%) ( Auto) 61, Lymphocytes (%) (Auto) 25, Monocytes (%) (Auto) 5, Eosinophils (%) (Auto) 7, Basophils (%) (Auto) 1, Neutrophils # (Auto) 4.4, Lymphocytes # (Auto) 1.8, Monocytes # (Auto) 0.4, Eosinophils # (Auto) 0.5, Basophils # (Auto) 0.1, Immature Granulocyte # (Auto) 0.1, Sodium Level 140, Potassium Level 4.4, Chloride Level 115, Carbon Dioxide Level 17, Anion Gap 8, Blood Urea Nitrogen 11, Creatinine 0.83, Estimat Glomerular Filtration Rate 77, BUN/Creatinine Ratio 13, Glucose Level 92, Calcium Level 8.7, Corrected Calcium 9.3, Total Bilirubin 0.5, Aspartate Amino Transf (AST/SGOT) 22, Alanine Aminotransferase (ALT/SGPT) 12, Alkaline Phosphatase 77, Total Protein 6.0, Albumin 3.2 Discharge Home Medications: Active Scripts Active Oxyir Tablet (Oxycodone HCl) 5 Mg Tab 5 Mg PO BID PRN Reported Metronidazole 0.75 % Cream..g. 1 Applic TP DAILY PRN Clindamycin Phosphate (Clindamycin Phos) 1 % Gel 1 Applic TP BID PRN Hydroxyzine HCl 50 Mg Tablet 50 Mg PO TID PRN Vitamin D3 (Cholecalciferol (Vitamin D3)) 50 Mcg (2000 Unit) Tablet 50 Mcg PO DAILY Topiramate 100 Mg Tablet 100 Mg PO BID Sumatriptan Succinate 50 Mg Tablet 50 Mg PO UD PRN Esomeprazole Magnesium 40 Mg Capsule.dr 40 Mg PO DAILY Docusate Sodium 100 Mg Capsule 100 Mg PO HS Vitamin B Complex 1 Each Tablet 1 Each PO DAILY Promethazine Tablet (Promethazine HCl) 25 Mg Tablet 25 Mg PO Q6H PRN Ambien (Zolpidem Tartrate) 10 Mg Tablet 10 Mg PO HS PRN Trazodone HCl 50 Mg Tablet 50 Mg PO HS Montelukast Sodium 10 Mg Tablet 10 Mg PO DAILY Linzess (Linaclotide) 290 Mcg Capsule 290 Mcg PO DAILY BEFORE BREAKFAST Levocetirizine Dihydrochloride 5 Mg Tablet 5 Mg PO 1800 Clonazepam 0.5 Mg Tablet 0.5 Mg PO TID PRN Gabapentin 600 Mg Tablet 600 Mg PO QID Atorvastatin Calcium 40 Mg Tablet 40 Mg PO DAILY Instructions to patient/family Please see electronic discharge instructions given to patient. Diagnosis/Problems Diagnosis/Problems (1) Generalized weakness Status: Acute (2) S/P hip replacement ANIKET GA DO Jan 12, 2022 10:17
--- NOTE | 2022-01-12 10:17 | D/C HH Face to Face Order ---
D/C HH Face to Face Orders Reconcile Patient Problems Problems Reviewed?: Yes Instructions for Patient HH Patient Instructions/FollowUp: PCP 1 week Physician to follow Patient: PCP Discharge Diet for Home: No Restrictions Patient Problems: Hip replacement Patient Data-Allergies,Ht & Wt Patient Allergies: Coded Allergies: Penicillins (Verified Allergy, Unknown, 03/09/19) doxycycline (Verified Allergy, Unknown, RASH, HIVES, ITCHING, 10/10/20) escitalopram (Verified Allergy, Unknown, 01/08/22) MAKES HER HAIR FALL OUT morphine (Verified Allergy, Unknown, 01/08/22) pt states that she has broke out in a rash when she previously took Morphine Home Health Need/Face to Face Date of Face to Face: Jan 12, 2022 Clinical Findings: Muscle weakness, Pain with ambulation I have seen Pt [id number]: Yes Discharged To: Home Diagnosis/Conditions: Debility Patient is Homebound due to: Muscle weakness Homebound Status Due to the above stated illness, injury or surgical procedure (medical condition or diagnosis) and associated clinical findings, the patient is homebound because of his/her inability to leave home except with aid of a supportive device and/or person AND leaving the home requires a considerable and taxing effort or is medically contraindicated. Pt req the following assistanc: Walker Home Health Nursing Orders Home Health Services Order: Nursing Services, Nutrition Helper-Evaluate & Treat, Physical Therapy-Evaluate & Treat Certify Stmt I certify that this patient is under my care and that I, a nurse practitioner or a physician; a academic assistant working with me, had a face to face encounter that - meets the physician face to face encounter requirements with this patient as dated. ANIKET GA DO Jan 12, 2022 10:17
--- NOTE | 2022-01-12 10:41 | Occupational Ther Daily Note ---
OT Current Status-Daily Note Subjective Pt alert, lying in bed. Nrsg in room. Pt states that she wants to go home today then amended that she is going home today. SW is working on discharge and physician is okay with discharge. Mental Status/Objective Patient Orientation: Person, Place, Time, Situation Attachments: Drains (wound vac) ADL-Treatment Pt unable to take shower due wound vac. Pt completed sponge bath sitting on toilet. Pt reached all areas except lower legs and feet due to hip precautions, pt declined to use AE. Per clinical judgment, pt able to complete toileting independently using FWW and grabbar. Pt stood at sink, to complete oral care independently. After set up, pt able to don/doff upper body clothing by self. Pt declines to use AE for lower body dressing, pt reports that she understands use of equipment and does not need further education. Assist to thread lower body clothing over hips then pt able to complete rest of sequence by self. Assist to don/doff socks. Pt states that she has walk-in shower at home and that [facility] will assist with showering. Per clinical judgment, pt able to complete eating independently. Therapy Code Descriptions/Definitions Functional [place] Measure: 0=Not Assessed/NA 4=Minimal Assistance 1=Total Assistance 5=Supervision or Setup 2=Maximal Assistance 6=Modified [place] 3=Moderate Assistance 7=Complete IndependenceSCALE: Activities may be completed with or without assistive devices. 4-Hiiggricoh-gfijyac completes the activity by him/herself with no assistance from a helper. 5-Set-up or Clean-up Assistance-helper sets up or cleans up; patient completes activity. [place] assists only prior to or following the activity. 4-Supervision or Touching Assistance-helper provides verbal cues and/or touching/steadying and/or contact guard assistance as patient completes activity. Assistance may be provided throughout the activity or intermittently. 3-Partial/Moderate Assistance-helper does LESS THAN HALF the effort. [place] lifts, holds or supports trunk or limbs, but provides less than half the effort. 2-Substantial/Maximal Assistance-helper does MORE THAN HALF the effort. [place] lifts or holds trunk or limbs and provides more than half the effort. 3-Wfqrseznr-fcdnby does ALL the effort. Patient does none of the effort to complete the activity. Or, the assistance of 2 or more helpers is required for the patient to complete the activity. If activity was not attempted, code reason: 7-Patient Refused. 9-Not Applicable-not attempted and the patient did not perform the activity before the current illness, exacerbation or injury. 10-Not Attempted due to Environmental Limitations-(lack of equipment, weather restraints, etc.). 88-Not Attempted due to Medical Conditions or Safety Concerns. Eating (QC): 6 Oral Hygiene (QC): 6 Bathing Location: L Arm, R Arm, L Upper Leg, R Upper Leg, Chest, Abdomen, Buttocks, Perineal Area Shower/Bathe Self (QC): 3 Upper Body Dressing (QC): 5 Lower Body Dressing (QC): 3 On/Off Footwear: 2 Toileting Hygiene (QC): 6 Toilet Transfer (QC): 6 BIMS CAM BIMS Expression of Ideas and Wants: Without Difficulty Understanding Verbal Content: Understands Brief Interview/Mental Status: Yes IRF PAM BIMS: IRF PAM BIMS Response (Comments) Value Repitition of Three Words Three 3 Recalls Socks Yes, No Cue Required 2 Recalls Blue Yes, No Cue Required 2 Recalls Bed Yes, No Cue Required 2 Year Correct 3 Month Accurate Within 5 Days 2 Day Correct 1 Total 15 Patient Normally Able to Recal: Current Session Should Staff Asses. Mental St.: No Notes: OT Short Term Goals Short Term Goals Time Frame: Jan 19, 2022 Eatin Oral hygiene: 4 Toileting hygiene: 3 Shower/bathe self: 3 Upper body dressin Lower body dressin Putting on/taking off footwear: 3 OT Block Splitter Operator Goals Mcc Goals Time Frame: Jan 29, 2022 Acute change in mental status: 0 Inattention: 0 Disorganized thinkin Altered level of consciousness: 0 Eating (QC): 6 (met) Oral Hygiene (QC): 5 (met) Toileting Hygiene (QC): 6 (met) Shower/Bathe Self (QC): 5 (not met) Upper Body Dressing (QC): 6 (not met) Lower Body Dressing (QC): 5 (not met) On/Off Footwear (QC): 6 (not met) Additional Goals: 1-Demonstrate ADL Tasks, 2-Verbalize Understanding, 3- ImproveStrength/Kaila 1=Demonstrate adherence to instructed precautions during ADL tasks. 2=Patient will verbalize/demonstrate understanding of assistive devices/modifications for ADL. 3=Patient will improve strength/tolerance for activity to enable patient to perform ADL's. OT Education/Plan Problem List/Assessment Assessment: Decreased Activ Tolerance, Impaired Self-Care Skills Discharge Recommendations Plan/Recommendations: Continue POC Treatment Plan/Plan of Care Patient would benefit from OT for education, treatment and training to promote independence in ADL's, mobility, safety and/or upper extremity function for ADL's. Plan of Care: ADL Retraining, Caregiver Training, Functional Mobility, Group Exercise/Act as Ind, UE Funct Exercise/Act Treatment Duration: Jan 29, 2022 Frequency: At least 5 of 7 days/Wk (IRF) Estimated Hrs Per Day: 1.5 hours per day (60-90 min/day) Agreement: Yes Rehab Potential: Guarded Time/GCodes Start Time: 09:30 Stop Time: 10:30 Total Time Billed (hr/min): 60 Billed Treatment Time 1 visit-ADL 4 (60 min) ZENA ARIAS Jan 12, 2022 10:41
[2022-01-12 10:50] VITALS: BP 101/51
--- NOTE | 2022-01-12 10:55 | Physical Therapy Daily Note ---
PT Daily Note-Current Subjective Pt sitting up in recliner upon arrival. Pt agrees to PT but reports wanting to d/c SUNDEEP due to panic attacks pt is having and pt feels she can take of self at home. Pain Location: Right Location Body Site: Hip Section J - Health Conditions 1. Rarely or not at all 2. Occasionally 3. Frequently 4. Almost constantly 8. Unable to answer Pain Effect on Sleep: 8 Pain Interference with Therapy: 8 Pain Interference w/Day-to-Day: 8 Mental Status Patient Orientation: Person, Confused, Place Transfers SCALE: Activities may be completed with or without assistive devices. 0-Nfavihhslr-oeagpvk completes the activity by him/herself with no assistance from a helper. 5-Set-up or Clean-up Assistance-helper sets up or cleans up; patient completes activity. [place] assists only prior to or following the activity. 4-Supervision or Touching Assistance-helper provides verbal cues and/or touching/steadying and/or contact guard assistance as patient completes activity. Assistance may be provided throughout the activity or intermittently. 3-Partial/Moderate Assistance-helper does LESS THAN HALF the effort. [place] lifts, holds or supports trunk or limbs, but provides less than half the effort. 2-Substantial/Maximal Assistance-helper does MORE THAN HALF the effort. [place] lifts or holds trunk or limbs and provides more than half the effort. 7-Wmnupcnuz-bmiuwg does ALL the effort. Patient does none of the effort to complete the activity. Or, the assistance of 2 or more helpers is required for the patient to complete the activity. If activity was not attempted, code reason: 7-Patient Refused. 9-Not Applicable-not attempted and the patient did not perform the activity before the current illness, exacerbation or injury. 10-Not Attempted due to Environmental Limitations-(lack of equipment, weather restraints, etc.). 88-Not Attempted due to Medical Conditions or Safety Concerns. Roll Left & Right (QC): 6 Sit to Lying (QC): 5 Lying to Sitting/Side of Bed(Q: 6 Sit to Stand (QC): 6 Chair/Dkv-hj-Pllxo Xfer(QC): 6 Toilet Transfer (QC): 6 Car Transfer (QC): 5 Weight Bearing Right Lower Extremity: Right Weight Bearing/Tolerated Left Lower Extremity: Left Full Weight Bearing Gait Training Does the Patient Walk?: Yes Distance: 500' Walk 10 feet (QC): 6 Walk 50 ft with 2 Turns(QC): 6 Walk 150 ft (QC): 6 Walking 10ft/uneven surface-QC: 6 Gait Assistive Device: FWW Wheelchair Training Does the Pt Use a Wheelchair?: No Stair Training 1 Step (curb) (QC): 88 4 Steps (QC): 88 12 Steps (QC): 88 Pt reports too much hip pain to attempt and won't have any to amb. at home. Balance Picking up an Object (QC): 88 Special Test Comments Hip Precautions don't allow for this and mill supervisor suggested. Pt doesn't want to attempt. Exercises Seated Therapy Exercises: Ankle pumps, Long arc quads, Hip flexion, Glut set Seated Reps: 15 Standing: Hip Abduction, Hamstring curls, Heel/toe raises, 3 way Ex=Flex, Abd, Ext (10 reps), Marching, Weight shifts Standing Reps: 15 Treatments TF to standing, declines need for BR. Amb in hallway, completes QC scoring items listed above as well Seated & Standing EX at //bars. Pt returns to room to rest EOB and take morning meds. All needs met. Assessment Current Status: Fair Progress Pt continues to be hyperfocused on pain meds and wants to leave SUNDEEP. PT Stave Grader Goals Assisted Goals PT Assisted Goals Time Frame: Jan 30, 2022 Roll Left & Right (QC): 6 Sit to Lying (QC): 6 Lying-Sitting on Side/Bed(QC): 6 Sit to Stand (QC): 6 Chair/Utg-ro-Pjmik Xfer(QC): 6 Toilet Transfer (QC): 6 Car Transfer (QC): 6 Does the Patient Walk: Yes Walk 10 feet (QC): 6 Walk 50ft with 2 Turns (QC): 4 Walk 150 ft (QC): 4 Walking 10ft on Uneven Surface: 6 1 Step (curb) (QC): 4 4 Steps (QC): 4 12 Steps (QC): 4 Picking up an Object (QC): 4 Does the Pt use WC or Scooter?: Yes Wheel 50 feet with 2 turns (QC: 6 Wheel 150 feet: 6 PT Plan Problem List Problem List: Safety Treatment/Plan Treatment Plan: Continue Plan of Care Treatment Plan: Bed Mobility, Education, Functional Activity Kaila, Functional Strength, Group Therapy, Gait, Safety, Therapeutic Exercise, Transfers Treatment Duration: Mar 21, 2022 Frequency: At least 5 of 7 days/Wk (IRF) Estimated Hrs Per Day: 1.5 hours per day Patient and/or Family Agrees t: Yes Safety Risks/Education Patient Education: Reviewed Precautions, Correct Positioning, Safety Issues Teaching Recipient: Patient Teaching Methods: Discussion Response to Teaching: Verbalize Understanding Time/GCodes Time In: 800 Time Out: 930 Total Billed Treatment Time: 90 Total Billed Treatment 1, GT x2 (30m), EX x2 (30m) & FA x2 (30m) WESTON CORONA EDUCATIONAL SPEECH LANGUAGE CLINICIAN Jan 12, 2022 10:55
[2022-01-12] MEDS: SUMAtriptan 50 MG (IMITREX) TAB PO PRN (14:11)
--- NOTE | 2022-01-12 14:44 | Therapy Team Discharge Summary ---
Therapy Discharge Summary Discharge Recommendations Date of Discharge Physical Therapy Patient came to rehab S/P Total Rt hip arthroplasty. Upon evaluation patient performed rolling and supine <-> sit min assist, sit <-> stand min assist, transfers CGA, car transfer max assist, ambulated 15' with a rolling walker with CGA, propelled a manual WC 50' with min assist, and went up and down 1 step using a rolling walker with min assist. Patient has been performing bed mobility and transfer training, balance and endurance training, functional strengthening, stair training, gait training, and education. Patient has made some progress but has not met her skilled nursing goals for sit to lying, car forde sfers, stairs, and picking up an object from the floor. Now, patient performs rolling with independence, supine to sit independent, sit to supine setup, sit <-> stand and transfers independent, car transfer setup, ambulates 500' with a rolling walker with independence (including 50' with at least 2 turns of 90 degrees and 10' over an uneven surface), patient refused to attempt stairs or picking up an object from the floor. Patient is being discharged from this facility today and will be discharged from PT at this time. Roll Left to Right (QC): 6 Sit to Lying (QC): 5 Lying to Sitting/Side of Bed(Q: 6 Sit to Stand (QC): 6 Chair/Htx-fa-Kikvn Xfer(QC): 6 Toilet Transfer (QC): 6 Car Transfer (QC): 5 Does the Patient Walk: Yes Mode of Locomotion: Walk Anticipated Mode of Locomotion: Walk Walk 10 feet (QC): 6 Walk 50 ft with 2 Turns(QC): 6 Walk 150 ft (QC): 6 Walking 10ft on uneven surface: 6 Distance: 500 Gait Assistive Device: FWW Does the Pt Use a Wheelchair: No Wheelchair Distance: 20 Wheel 50 ft with 2 turns (QC): 3 Wheel 150 ft (QC): 88 Type of Wheelchair: Manual #of Steps: 1 1 Step (curb) (QC): 88 4 Steps (QC): 88 12 Steps (QC): 88 Balance Sitting Static: Fair Balance Sitting Dynamic: Fair Balance-Standing Static: Poor Picking up an Object (QC): 88 Occupational Therapy Decreased Activ Tolerance, Impaired Self-Care Skills Eating (QC): 6 Oral Hygiene (QC): 6 Shower/Bathe Self (QC): 3 Upper Body Dressing (QC): 5 Lower Body Dressing (QC): 3 On/Off Footwear (QC): 2 Toileting Hygiene (QC): 6 PT Batter Depositor Goals Skilled Nursing Goals PT Batter Depositor Goals Time Frame: Jan 30, 2022 PT OT Pain Eval : Comment: Reported but not rated Scoring Section J - Health Conditions 1. Rarely or not at all 2. Occasionally 3. Frequently 4. Almost constantly 8. Unable to answer Roll Left to Right (QC): 6 Sit to Lying (QC): 6 Lying-Sitting on Side/Bed(QC): 6 Sit to Stand (QC): 6 Chair/Jfe-nf-Elpjn Xfer(QC): 6 Toilet/Commode Transfer (QC): 6 Car Transfer (QC): 6 Does the Patient Walk: Yes Walk 10 feet (QC): 6 Walk 10ft-Uneven Surface(QC): 6 Walk 50ft with 2 Turns (QC): 4 Walk 150 ft (QC): 4 Gait Assistive Device: FWW Does the Pt use WC or Scooter?: Yes Wheel 50 feet with 2 turns (QC: 6 1 Step (curb) (QC): 4 4 Steps (QC): 4 12 Steps (QC): 4 Picking up an Object (QC): 4 OT Batter Depositor Goals Batter Depositor Goals Time Frame: Jan 29, 2022 Acute change in mental status: 0 Inattention: 0 Disorganized thinkin Altered level of consciousness: 0 Eating (QC): 6 (met) Oral Hygiene (QC): 5 (met) Toileting Hygiene (QC): 6 (met) Shower/Bathe Self (QC): 5 (not met) Upper Body Dressing (QC): 6 (not met) Lower Body Dressing (QC): 5 (not met) On/Off Footwear (QC): 6 (not met) Additional Goals: 1-Demonstrate ADL Tasks, 2-Verbalize Understanding, 3- ImproveStrength/Kaila 1=Demonstrate adherence to instructed precautions during ADL tasks. 2=Patient will verbalize/demonstrate understanding of assistive devices/modifications for ADL. 3=Patient will improve strength/tolerance for activity to enable patient to perform ADL's. SALVATORE GRAMAJO PT Jan 12, 2022 14:44
[2022-01-12 15:17] VITALS: BP 110/75
[2022-01-12 16:20] VITALS: BP 110/75
[2022-01-12] MEDS ORDERED: KCL 20 MEQ TAB (K-DUR) PO SCH (21:00)
--- NOTE | 2022-01-13 09:43 | Therapy Team Discharge Summary ---
Therapy Discharge Summary Discharge Recommendations Date of Discharge Jan 12, 2022 at 16:29 Therapy D/C Recommendations: Bath Aide, Occupational Therapy Home Care, Homemaker Support, Scheduled Assistance Physical Therapy Roll Left to Right (QC): 6 Sit to Lying (QC): 5 Lying to Sitting/Side of Bed(Q: 6 Sit to Stand (QC): 6 Chair/Rwi-ku-Nqtbn Xfer(QC): 6 Toilet Transfer (QC): 5 Car Transfer (QC): 5 Does the Patient Walk: Yes Mode of Locomotion: Walk Anticipated Mode of Locomotion: Walk Walk 10 feet (QC): 6 Walk 50 ft with 2 Turns(QC): 6 Walk 150 ft (QC): 6 Walking 10ft on uneven surface: 6 Distance: 500 Gait Assistive Device: FWW Does the Pt Use a Wheelchair: No Wheelchair Distance: 20 Wheel 50 ft with 2 turns (QC): 3 Wheel 150 ft (QC): 88 Type of Wheelchair: Manual #of Steps: 1 1 Step (curb) (QC): 88 4 Steps (QC): 88 12 Steps (QC): 88 Balance Sitting Static: Fair Balance Sitting Dynamic: Fair Balance-Standing Static: Poor Picking up an Object (QC): 88 Occupational Therapy Pt came to [facility] after recent hip surgery. At the time of eval, pt was dependent for footwear, min assist for showering, and lower body dressing, supervision for eating, toilet hygiene and toilet transfer, set up for upper body dressing, and independent for oral hygiene. During her stay, OT worked on compensatory strategies, strengthening, safety, AE, balance, and ADLs. Pt made fair progress but did not meet all of her assisted goals due to refusal to utilize adaptive equipment or modifications/suggestions made by therapist. She has now d/c from this facility and will be d/c from skilled OT at this time. 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 Goals [facility] Goals PT [facility] Goals Time Frame: Jan 30, 2022 Roll Left to Right (QC): 6 Sit to Lying (QC): 6 Lying-Sitting on Side/Bed(QC): 6 Sit to Stand (QC): 6 Chair/[id number]-Mabpq Xfer(QC): 6 Toilet/Commode Transfer (QC): 6 Car Transfer (QC): 6 Does the Patient Walk: Yes Walk 10 feet (QC): 6 Walk 10ft-Uneven Surface(QC): 6 Walk 50ft with 2 Turns (QC): 4 Walk 150 ft (QC): 4 Does the Pt use WC or Scooter?: Yes Wheel 50 feet with 2 turns (QC: 6 Wheel 150 feet: 6 1 Step (curb) (QC): 4 4 Steps (QC): 4 12 Steps (QC): 4 Picking up an Object (QC): 4 OT Retail Leasing Agent Goals [facility] Goals Time Frame: Jan 29, 2022 Acute change in mental status: 0 Inattention: 0 Disorganized thinkin Altered level of consciousness: 0 Eating (QC): 6 (met) Oral Hygiene (QC): 5 (met) Toileting Hygiene (QC): 6 (met) Shower/Bathe Self (QC): 5 (not met) Upper Body Dressing (QC): 6 (not met) Lower Body Dressing (QC): 5 (not met) On/Off Footwear (QC): 6 (not met) Additional Goals: 1-Demonstrate ADL Tasks, 2-Verbalize Understanding, 3- ImproveStrength/Kaila 1=Demonstrate adherence to instructed precautions during ADL tasks. 2=Patient will verbalize/demonstrate understanding of assistive devices/modifications for ADL. 3=Patient will improve strength/tolerance for activity to enable patient to perform ADL's. Antonina Camarillo OT Jan 13, 2022 09:43
== END 2022-01-12 16:29 | disposition home health service (06) | DRG 560 ==
PROVIDERS: ADMIT Internal Medicine; ATTEND Internal Medicine
DX: Z47.1 Aftercare following joint replacement surgery (principal); F11.20 Opioid dependence, uncomplicated; F13.20 Sedative, hypnotic or anxiolytic dependence, uncomplicated; Z96.641 Presence of right artificial hip joint; M41.9 Scoliosis, unspecified; I10 Essential (primary) hypertension; K59.00 Constipation, unspecified; F41.9 Anxiety disorder, unspecified; Z66 Do not resuscitate; F32.A Depression, unspecified; G89.4 Chronic pain syndrome; M79.7 Fibromyalgia; E87.6 Hypokalemia; Z88.5 Allergy status to narcotic agent
CPT/HCPCS: 36415; 80053; 82607; 83540; 83735; 85025